=== PATIENT | female | born 1940 | race Caucasian/White ===

== ENCOUNTER → 2016-12-24 | Outpatient (REF) | payer MEDICARE, OTHER | LOC: M LAB REF 16:37 | PROVIDERS: ATTEND Physician Assistant | DX: N39.0 Urinary tract infection, site not specified (principal) ==

== ENCOUNTER 2017-06-16 00:37 | Inpatient (IN) | payer MEDICARE, BC, OTHER ==
[~2017-06-16] VITALS: Ht 167.6 cm; Wt 92.1 kg
[2017-06-16] MEDS ORDERED: pro air (00:56)
[2017-06-16] MEDS ORDERED: FEXO1POW PO (00:56)
[2017-06-16] MEDS ORDERED: ATEN100T PO (00:56)
[2017-06-16] MEDS ORDERED: ROSU5TAB PO (00:56)
[2017-06-16] MEDS ORDERED: TRIA37.53 PO (00:56)
[2017-06-16] MEDS ORDERED: OMEP40CA2 PO (00:56)
[2017-06-16] MEDS ORDERED: CLOP75TA2 PO (00:56)
[2017-06-16] MEDS: METOPROLOL 5 MG/5 ML VIAL IV PRN ×3 (01:12→01:25)
[2017-06-16] MEDS ORDERED: NS 500 ML IV ONE (01:15)
[2017-06-16 01:25] LABS: BASO % 0.4 % (0.0-1.0); EOS # 0.2 10^3/uL (0.0-0.50); EOS % 3.9 % (0.0-3.0); IMMATURE GRANULOCYTE % 0.4 % (0-0); LYMPH # 1.1 10^3/uL (1.5-4.5); LYMPH % 18.8 % (24.0-44.0); MEAN CORPUSCULAR HGB CONC 32.2 g/dl (32.0-36.5); MEAN CORPUSCULAR VOLUME 87.1 fl (80.0-96.0); MONO % 17.7 % (0.0-5.0); NEUTROPHILS # 3.3 10^3/uL (1.8-7.7); NEUTROPHILS % 58.8 % (36.0-66.0); PLATELET COUNT, AUTOMATED 191 10^3/uL (150-450); RED CELL DISTRIBUTION WIDTH 14.4 % (11.5-14.5); WHITE BLOOD COUNT 5.6 10^3/uL (4.0-10.0)
[2017-06-16 01:44] LABS: INR 0.99
[2017-06-16 01:47] LABS: ALBUMIN 3.4 GM/DL (3.2-5.2); ALT/SGPT 22 U/L (12-78); ANION GAP 7 MEQ/L (8-16); AST/SGOT 21 U/L (7-37); BILIRUBIN,DIRECT < 0.1 MG/DL (0.0-0.2); BLOOD UREA NITROGEN 22 MG/DL (7-18); CALCIUM LEVEL 8.7 MG/DL (8.8-10.2); CARBON DIOXIDE LEVEL 27 MEQ/L (21-32); CHLORIDE LEVEL 105 MEQ/L (98-107); CREATININE FOR GFR 0.89 MG/DL (0.55-1.02); GLOMERULAR FILTRATION RATE > 60.0 (>39); GLUCOSE, FASTING 117 MG/DL (83-110); MAGNESIUM LEVEL 1.9 MG/DL (1.8-2.4); POTASSIUM SERUM 3.6 MEQ/L (3.5-5.1); SODIUM LEVEL 139 MEQ/L (136-145)
[2017-06-16] MEDS ORDERED: PROAAER10 INH (01:49)
[2017-06-16] MEDS ORDERED: ALLE180T33 PO (01:49)
[2017-06-16] MEDS ORDERED: ANOR1AER INH (01:51)
[2017-06-16] MEDS ORDERED: PRESCAP PO (01:51)
[2017-06-16] MEDS ORDERED: ADVI200C PO (01:51)
[2017-06-16 01:52] LABS: ALBUMIN/GLOBULIN RATIO 0.94 (1.00-1.93); ALKALINE PHOSPHATASE 56 U/L (45-117); BILIRUBIN,TOTAL 0.4 MG/DL (0.2-1.0); FREE T4 1.01 NG/DL (0.76-1.46); PHOSPHORUS LEVEL 2.4 MG/DL (2.5-4.9)
[2017-06-16] MEDS ORDERED: DIGOXIN INJ 0.5 MG/2 ML AMP (J1160) IV STA (01:58)
[2017-06-16] MEDS ORDERED: NEUTRA-PHOS 1.25 GM PACKET PO ONE (02:00)
[2017-06-16] MEDS ORDERED: IPRATROPIUM 0.5MG/ALBUTEROL 2.5MG INH SOL UD 3ML (DUONEB)(J7620) NEB PRN (03:30)
[2017-06-16] MEDS: METOPROLOL TART 25 MG TABLET PO SCH ×3 (06:35→18:34)
[2017-06-16 06:44] LABS: MEAN CORPUSCULAR HEMOGLOBIN 27.9 pg (27.0-33.0); MEAN CORPUSCULAR HGB CONC 31.9 g/dl (32.0-36.5); MEAN CORPUSCULAR VOLUME 87.4 fl (80.0-96.0); PLATELET COUNT, AUTOMATED 173 10^3/uL (150-450); RED CELL DISTRIBUTION WIDTH 14.4 % (11.5-14.5); WHITE BLOOD COUNT 4.2 10^3/uL (4.0-10.0)
--- NOTE | 2017-06-16 06:54 | HPE ---
DATE OF ADMISSION: 06/16/2017 Lupe Mendenhall is a 76-year-old female patient of Dr. Shirley. Patient comes in with chief complaint of palpitations and chest pain. Patient notes that she was well until going to bed at 11:30 this evening when she said she tried to fall asleep and she felt some chest pain and palpitations. She tried to sleep anyway. She said that she thought maybe it was because she was only one pillow. She added a second pillow and it did not help her feel better. Thereafter, she says that she began to feel scared as well as uncomfortable so she called EMS who brought her in. Patient has somewhat limited insight into her medical conditions, based on the fact that when asking her directly if she has heart problems or other medical problems, she denies it though she clearly has hypertension, hyperlipidemia and coronary artery disease based on her medications. Patient also appears to have chronic obstructive pulmonary disease (COPD) based on her medications as well. Patient's home medications include: - Advil PM - albuterol sulfate - Anoro Ellipta - atenolol - Plavix - Penelope - hydrochlorothiazide with trimeter - omeprazole - PreserVision - rosuvastatin Patient denies allergies, however, I have a documented allergic allergy to atorvastatin and Itraconazole. FAMILY HISTORY: Mother of heart attack at 77. Father of unknown cause in his 80s. Patient denies any other problems. Patient is a nonsmoker, nondrinker, does not use drugs. REVIEW OF SYSTEMS: On complete 10 system review, patient without any other acute complaints other than was noted in the history of present illness. PHYSICAL EXAMINATION: Patient was resting comfortably when I came in to see her. Patient's most recent vitals show pulse of 112, pulse oximetry of 96 on 2 liters nasal cannula, blood pressure 120/63, temperature is 96.7, that was taken earlier in the day. Patient alert and oriented times three, normal affect, normal mood. Cranial nerves II-XII grossly intact. Patient with grossly decreased hearing on both sides. Patient with extraocular muscles intact, pupils equal, round, and reactive to light and accommodation, good eye sight in all four quadrants. Good inspiratory and expiratory effort. No wheezes, rhonchi or rales. Patient tachycardic on auscultation, difficult to ascertain S1 versus S2. No obvious murmurs noted. Abdomen is soft, nontender to palpation. Patient does walk with a cane, however has good strength in all four major extremities. No apparent lymphadenopathy. Skin is warm and dry. No significant edema. HOSPITAL COURSE: After patient arrived in the ED, patient was found initially to be hypotensive. Patient given three rounds of IV Lopressor and IV digoxin. Patient's heart rate did slow down, however, is still in atrial fibrillation with rapid ventricular rate. Patient without any previous history of atrial fibrillation with rapid ventricular rate as per the patient, however, again, patient denies any coronary artery disease, though patient is on Plavix and statin and aspirin. ASSESSMENT AND PLAN: Patient is a 76-year-old female who comes in with chief complaint of palpitations and chest pain. Patient found to be in atrial fibrillation with rapid ventricular rate. Cardiology consulted by ED. Dr. Gleason recommends changing patient's atenolol to metoprolol 50. This was done. Patient given IV digoxin. Recommendations include continue with oral digoxin daily. This was instituted. Patient to be on telemonitoring to be seen by cardiology in the morning. For patient's chronic obstructive pulmonary disease (COPD), hold home medications. DuoNebs as needed. Patient will be on low sodium diet. Patient not fully ambulatory at this time. Patient elderly. Patient also expected to have somewhat prolonged stay, therefore chemical deep venous thrombosis (DVT) prophylaxis is recommended. Patient to start on Lovenox. I first saw patient 06/16/2017. Given the patient's new onset atrial fibrillation with rapid ventricular rate without any clear source or cause, I expect this admission to be greater than two midnights.
[2017-06-16 06:56] LABS: INR 1.06
[2017-06-16 07:17] LABS: ALBUMIN 3.3 GM/DL (3.2-5.2); ALBUMIN/GLOBULIN RATIO 0.97 (1.00-1.93); ALKALINE PHOSPHATASE 51 U/L (45-117); ALT/SGPT 20 U/L (12-78); ANION GAP 7 MEQ/L (8-16); AST/SGOT 17 U/L (7-37); BILIRUBIN,TOTAL 0.4 MG/DL (0.2-1.0); BLOOD UREA NITROGEN 20 MG/DL (7-18); CALCIUM LEVEL 8.5 MG/DL (8.8-10.2); CARBON DIOXIDE LEVEL 29 MEQ/L (21-32); CHLORIDE LEVEL 106 MEQ/L (98-107); CREATININE FOR GFR 0.78 MG/DL (0.55-1.02); GLOMERULAR FILTRATION RATE > 60.0 (>39); GLUCOSE, FASTING 91 MG/DL (83-110); POTASSIUM SERUM 3.8 MEQ/L (3.5-5.1); SODIUM LEVEL 142 MEQ/L (136-145); TOTAL PROTEIN 6.7 GM/DL (6.4-8.2)
[2017-06-16] MEDS: FEXOFENADINE 60 MG TAB PO SCH (08:31)
[2017-06-16] MEDS: DYAZIDE 37.5/25 CAP (TRIAM/HCTZ) PO SCH (08:33)
[2017-06-16] MEDS: DIGOXIN 0.125 MG TAB PO SCH (08:34)
[2017-06-16] MEDS: OMEPRAZOLE 20 MG CAP PO SCH (08:34)
--- NOTE | 2017-06-16 08:45 | REP ---
Clinical: Chest pain . Comparison: 10/28/2007 Findings: The mediastinum and cardiac silhouette are stable and within normal limits for portable technique. The lung savage are clear without acute consolidation, effusion, or pneumothorax. Skeletal structures are intact. Impression: No acute cardiopulmonary process appreciated. Signed by Eddie Cade MD 06/16/2017 08:36 A
[2017-06-16] MEDS ORDERED: CLOPIDOGREL 75 MG TAB PO SCH (09:00)
[2017-06-16] MEDS ORDERED: ENOXAPARIN 40 MG/0.4 ML SYRINGE (J1650) SC SCH (09:00)
--- NOTE | 2017-06-16 09:34 | ECGEPIP ---
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
[2017-06-16 18:20] VITALS: BP 187/86
[2017-06-16 20:00] VITALS: BP 108/54
[2017-06-16] MEDS ORDERED: ROSUVASTATIN 10 MG TAB (CRESTOR) PO SCH (21:00)
--- NOTE | 2017-06-16 21:28 | ECGEPIP ---
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
[2017-06-16 23:59] VITALS: BP 117/56
[2017-06-17] MEDS: METOPROLOL TART 25 MG TABLET PO SCH ×2 (01:19→06:00)
[2017-06-17] MEDS ORDERED: ACETAMINOPHEN TAB 650MG DOSE (2X325MG) PO PRN (02:45)
[2017-06-17 02:54] VITALS: BP 130/58
[2017-06-17 06:00] VITALS: BP 130/58
[2017-06-17 06:10] LABS: MEAN CORPUSCULAR HEMOGLOBIN 27.9 pg (27.0-33.0); MEAN CORPUSCULAR HGB CONC 31.8 g/dl (32.0-36.5); MEAN CORPUSCULAR VOLUME 87.7 fl (80.0-96.0); PLATELET COUNT, AUTOMATED 184 10^3/uL (150-450); RED CELL DISTRIBUTION WIDTH 14.2 % (11.5-14.5); WHITE BLOOD COUNT 5.4 10^3/uL (4.0-10.0)
[2017-06-17 06:26] LABS: INR 0.96
[2017-06-17 06:28] LABS: ALBUMIN 3.3 GM/DL (3.2-5.2); ALBUMIN/GLOBULIN RATIO 1.03 (1.00-1.93); ALKALINE PHOSPHATASE 52 U/L (45-117); ALT/SGPT 17 U/L (12-78); ANION GAP 8 MEQ/L (8-16); AST/SGOT 15 U/L (7-37); BILIRUBIN,TOTAL 0.4 MG/DL (0.2-1.0); BLOOD UREA NITROGEN 21 MG/DL (7-18); CALCIUM LEVEL 8.9 MG/DL (8.8-10.2); CARBON DIOXIDE LEVEL 24 MEQ/L (21-32); CHLORIDE LEVEL 109 MEQ/L (98-107); CREATININE FOR GFR 0.87 MG/DL (0.55-1.02); GLOMERULAR FILTRATION RATE > 60.0 (>39); GLUCOSE, FASTING 94 MG/DL (83-110); SODIUM LEVEL 141 MEQ/L (136-145); TOTAL PROTEIN 6.5 GM/DL (6.4-8.2)
[2017-06-17 08:00] VITALS: BP 154/71
[2017-06-17] MEDS ORDERED: ATEN50TA2 PO (08:07)
[2017-06-17] MEDS ORDERED: ELIQ5TAB PO (08:07)
[2017-06-17] MEDS ORDERED: DIGO0.12 PO (08:07)
[2017-06-17] MEDS ORDERED: APIXABAN 5 MG TAB (ELIQUIS) PO ONE (08:15)
[2017-06-17] MEDS: FEXOFENADINE 60 MG TAB PO SCH (09:00)
[2017-06-17] MEDS: DYAZIDE 37.5/25 CAP (TRIAM/HCTZ) PO SCH (09:29)
[2017-06-17] MEDS: OMEPRAZOLE 20 MG CAP PO SCH (09:29)
[2017-06-17] MEDS: DIGOXIN 0.125 MG TAB PO SCH (09:30)
--- NOTE | 2017-06-18 17:44 | DSES ---
DATE OF ADMISSION: 06/16/2017 DATE OF DISCHARGE: 06/17/2017 SPECIALISTS INVOLVED IN CARE: None. COMPLICATIONS DURING STAY: None. PROCEDURES PERFORMING DURING STAY: None. DISCHARGE DIAGNOSES: 1. Atrial fibrillation with rapid ventricular response. 2. Hypertension. 3. History of transient ischemic attack, on Plavix. 4. Hyperlipidemia. 5. Suspected coronary artery disease. 6. Chronic obstructive pulmonary disease. SUMMARY OF HOSPITALIZATION: This is a 76-year-old who frequently suffers from weakness and dizzy spells. Has previously had Holter monitor. The night before the presentation she had presented with palpitations. She has had previous episodes of palpitations. Apparently not while on a Holter monitor. These were long lasting, longer than normal. She came to the emergency department for evaluation and was found to be in atrial fibrillation with rapid ventricular response (RVR). She was admitted to the hospitalist service and converted quickly to sinus rhythm with controlled rate. There was some confusion about the need for a cardiology consult. The patient has been monitored in the hospital overnight and has remained in sinus rhythm. Is feeling well and would like to go home. On the day of discharge she has no complaints of pain, chest pain, shortness of breath. I have discussed this case by phone with Dr. Gleason, who has assisted me in choosing medications. DISCHARGE INSTRUCTIONS: Followup with Dr. Shirley within [address] Gleason per his instructions. She is to call his office on June 21 for followup information. Diet and activity as tolerated. NEW MEDICATIONS AT TIME OF DISCHARGE: - apixaban 5 mg by mouth twice daily - atenolol 50 mg by mouth twice daily - digoxin 125 mcg by mouth daily - albuterol every 4 hours as needed for shortness of breath - Anoro Ellipta inhaled daily - Penelope 180 mg by mouth daily - hydrochlorothiazide/triamterene one capsule by mouth daily - omeprazole 40 mg by mouth daily - PreserVision one capsule by mouth twice daily - Crestor 5 mg by mouth daily Discontinue Advil PM. Discontinue atenolol 100 mg daily. Discontinue Plavix. Please note, patient may benefit from outpatient event recorded and/or loop recorder.
== END 2017-06-17 13:45 | disposition home or self-care (01) | DRG 310 ==
LOC: M ED 00:37 → M ED INP 03:01 → M PCU 18:15
PROVIDERS: ADMIT Internal Medicine; ATTEND Internal Medicine
DX: I48.91 Unspecified atrial fibrillation (principal); E78.5 Hyperlipidemia, unspecified; I25.10 Atherosclerotic heart disease of native coronary artery without angina pectoris; J44.9 Chronic obstructive pulmonary disease, unspecified; I10 Essential (primary) hypertension; Z79.02 Long term (current) use of antithrombotics/antiplatelets; Z79.899 Other long term (current) drug therapy; Z88.8 Allergy status to other drugs, medicaments and biological substances; Z86.73 Personal history of transient ischemic attack (TIA), and cerebral infarction without residual deficits

== ENCOUNTER → 2017-11-12 | Outpatient (REF) | payer MEDICARE, OTHER ==
[2017-11-12 17:18] LABS: C REACTIVE PROTEIN QUANTITATIV 1.55 MG/DL (0.00-0.30); FERRITIN 18 NG/ML (8-252); IRON (FE) 41 UG/DL (50-170); PERCENT SATURATION 11.8 % (13.2-45.0); TOTAL IRON BINDING CAPACITY 348 UG/DL (250-450)
== END ==
LOC: M LAB REF 16:24
DX: D64.9 Anemia, unspecified (principal); R19.7 Diarrhea, unspecified
CPT/HCPCS: 83550

== ENCOUNTER → 2017-11-30 | Outpatient (CLI) | payer MEDICARE, BC, OTHER | LOC: M SMT 13:08 | DX: R06.02 Shortness of breath (principal); K44.9 Diaphragmatic hernia without obstruction or gangrene; J84.9 Interstitial pulmonary disease, unspecified; I70.0 Atherosclerosis of aorta; M51.34 Other intervertebral disc degeneration, thoracic region | CPT/HCPCS: 71046 ==

== ENCOUNTER → 2018-01-29 | Outpatient (REF) | payer MEDICARE, BC, OTHER | LOC: M WUC 09:20 | DX: N39.0 Urinary tract infection, site not specified (principal) | CPT/HCPCS: 87186 ==

== ENCOUNTER → 2018-02-15 | Outpatient (REF) | payer MEDICARE, BC, OTHER | LOC: M LAB REF 11:47 | DX: R30.0 Dysuria (principal) | CPT/HCPCS: 87186 ==

== ENCOUNTER 2018-03-14 06:50 | Emergency (ER) | payer MEDICARE, BC, OTHER ==
[2018-03-14 07:39] LABS: BASO # 0.1 10^3/uL (0.0-0.2); BASO % 0.6 % (0.0-1.0); EOS # 0.3 10^3/uL (0.0-0.50); EOS % 4.1 % (0.0-3.0); HEMATOCRIT 38.3 % (36.0-47.0); HEMOGLOBIN 12.2 g/dl (12.0-15.5); IMMATURE GRANULOCYTE % 0.4 % (0-3.0); LYMPH % 12.3 % (24.0-44.0); MEAN CORPUSCULAR HEMOGLOBIN 28.1 pg (27.0-33.0); MEAN CORPUSCULAR HGB CONC 31.9 g/dl (32.0-36.5); MEAN CORPUSCULAR VOLUME 88.2 fl (80.0-96.0); MONO # 0.8 10^3/uL (0.0-0.8); MONO % 9.6 % (0.0-5.0); NEUTROPHILS # 5.9 10^3/uL (1.8-7.7); PLATELET COUNT, AUTOMATED 222 10^3/uL (150-450); RED BLOOD COUNT 4.34 10^6/uL (4.00-5.40); WHITE BLOOD COUNT 8.1 10^3/uL (4.0-10.0)
[2018-03-14 07:49] LABS: INR 1.05; PROTHROMBIN TIME 13.8 SECONDS (12.1-14.4)
[2018-03-14 07:50] LABS: PARTIAL THROMBOPLASTIN TIME 32.9 SECONDS (25.4-37.6)
[2018-03-14] MEDS: METOPROLOL 5 MG/5 ML VIAL IV ×4 (07:58→08:15)
[2018-03-14 07:59] LABS: ANION GAP 12 MEQ/L (8-16); BLOOD UREA NITROGEN 41 MG/DL (7-18); CALCIUM LEVEL 8.9 MG/DL (8.8-10.2); CARBON DIOXIDE LEVEL 21 MEQ/L (21-32); CHLORIDE LEVEL 111 MEQ/L (98-107); CPK CREATINE PHOSPHOKINASE 155 U/L (26-192); CREATININE FOR GFR 0.97 MG/DL (0.55-1.30); FREE T4 0.78 NG/DL (0.76-1.46); GLOMERULAR FILTRATION RATE 59.1 (>39); GLUCOSE, FASTING 125 MG/DL (70-100); MAGNESIUM LEVEL 2.2 MG/DL (1.8-2.4); PHOSPHORUS LEVEL 3.2 MG/DL (2.5-4.9); POTASSIUM SERUM 4.5 MEQ/L (3.5-5.1); SODIUM LEVEL 144 MEQ/L (136-145); TROPONIN I < 0.02 NG/ML (< 0.10)
[2018-03-14 08:14] LABS: CK-MB VALUE MASS 13.6 NG/ML (<3.6); MB/CK RELATIVE INDEX 8.77 (< OR =4); THYROID STIMULATING HORMONE 0.778 uIU/ML (0.358-3.740)
[2018-03-14 08:17] LABS: DIGOXIN LEVEL 0.9 NG/ML (0.5-2.0)
[2018-03-14] MEDS: AMIODARONE HCL 150 MG in APPROPRIATE DILUENT 1 EA IV (09:21)
[2018-03-14] MEDS: ATROPINE SULF 0.4 MG/ML 1ML VIAL (J0461) IV (10:33)
[2018-03-14] MEDS ORDERED: ATROPINE SULF 1MG/10ML SYRINGE (J0461) As Ordered (10:35)
[2018-03-14] MEDS: NS 500 ML IV ×2 (10:41→11:38)
[2018-03-14 11:41] LABS: CPK CREATINE PHOSPHOKINASE 123 U/L (26-192); TROPONIN I < 0.02 NG/ML (< 0.10)
[2018-03-14 11:42] LABS: CK-MB VALUE MASS 11.4 NG/ML (<3.6); MB/CK RELATIVE INDEX 9.26 (< OR =4)
[2018-03-14 14:10] LABS: CK-MB VALUE MASS 11.1 NG/ML (<3.6); CPK CREATINE PHOSPHOKINASE 124 U/L (26-192); MB/CK RELATIVE INDEX 8.95 (< OR =4); TROPONIN I < 0.02 NG/ML (< 0.10)
== END 2018-03-14 14:32 | disposition home or self-care (01) ==
LOC: M ED 06:50
DX: I48.91 Unspecified atrial fibrillation (principal); R91.8 Other nonspecific abnormal finding of lung field; I10 Essential (primary) hypertension; J44.9 Chronic obstructive pulmonary disease, unspecified; J45.909 Unspecified asthma, uncomplicated; E78.5 Hyperlipidemia, unspecified; K58.9 Irritable bowel syndrome, unspecified; K44.9 Diaphragmatic hernia without obstruction or gangrene; F17.200 Nicotine dependence, unspecified, uncomplicated; Z86.73 Personal history of transient ischemic attack (TIA), and cerebral infarction without residual deficits; Z79.01 Long term (current) use of anticoagulants; Z91.018 Allergy to other foods; Z88.8 Allergy status to other drugs, medicaments and biological substances; Z79.899 Other long term (current) drug therapy
CPT/HCPCS: J0461

== ENCOUNTER → 2018-07-21 | Outpatient (REF) | payer MEDICARE, OTHER ==
[~2018-07-21] MED LIST: ADVI1CAP2 PO; ALLE180T33 PO; ANOR1AER INH; ATEN100T PO; ATEN50TA2 PO; CLOP75TA2 PO; DIGO0.12 PO; ELIQ5TAB PO; FERR325T16 PO; FEXO1POW PO; LOSA50TA88 PO; OMEP40CA2 PO; PRESCAP PO; PROAAER10 INH; ROSU5TAB4 PO; SERT50TA PO; TRIA37.53 PO; TYLE650T35 PO; pro air
== END ==
LOC: M LAB REF 16:08
PROVIDERS: ATTEND Physician Assistant
DX: N39.0 Urinary tract infection, site not specified (principal)

== ENCOUNTER → 2018-09-01 | Outpatient (REF) | payer MEDICARE, OTHER | LOC: M LAB REF 16:50 | PROVIDERS: ATTEND Internal Medicine | DX: I48.0 Paroxysmal atrial fibrillation (principal) ==

== ENCOUNTER → 2018-09-30 | Outpatient (REF) | payer MEDICARE, OTHER ==
[2018-10-02 08:53] LABS: LDL DIRECT 106 mg/dL (0-99)
== END ==
LOC: M LAB REF 16:51
PROVIDERS: ATTEND Internal Medicine
DX: E78.5 Hyperlipidemia, unspecified (principal)

== ENCOUNTER → 2019-02-02 | Outpatient (REF) | payer MEDICARE, OTHER ==
[~2019-02-02] MED LIST changes: -ROSU5TAB4 PO; +ROSU5TAB5 PO; +SERT-141 PO; -SERT50TA PO
== END ==
LOC: M LAB REF 12:25
PROVIDERS: ATTEND Internal Medicine
DX: I48.0 Paroxysmal atrial fibrillation (principal)

== ENCOUNTER → 2019-05-26 | Outpatient (REF) | payer MEDICARE, OTHER ==
[~2019-05-26] MED LIST changes: -OMEP40CA2 PO; +OMEP40CA97 PO
[2019-05-26 13:20] LABS: DIGOXIN LEVEL 1.1 NG/ML (0.5-2.0); PERCENT SATURATION 20.9 % (13.2-45.0)
== END ==
LOC: M LAB REF 12:29
PROVIDERS: ATTEND Internal Medicine
DX: D50.9 Iron deficiency anemia, unspecified (principal); I48.0 Paroxysmal atrial fibrillation

== ENCOUNTER → 2019-11-02 | Outpatient (REF) | payer MEDICARE, OTHER ==
[~2019-11-02] MED LIST changes: +CARV12.5 PO; -DIGO0.12 PO; +DIGO0.123 PO
[2019-11-02 13:08] LABS: DIGOXIN LEVEL 1.2 NG/ML (0.5-2.0); PERCENT SATURATION 21.8 % (13.2-45.0)
[2019-11-03 08:06] LABS: LDL DIRECT 42 mg/dL (0-99)
== END ==
LOC: M LAB REF 12:18
PROVIDERS: ATTEND Internal Medicine
DX: D50.9 Iron deficiency anemia, unspecified (principal); I48.0 Paroxysmal atrial fibrillation; E78.5 Hyperlipidemia, unspecified

== ENCOUNTER 2019-11-03 11:56 | Day surgery (SDC) | payer MEDICARE, BC, OTHER ==
[~2019-11-03] VITALS: Ht 167.6 cm; Wt 85.4 kg
[~2019-11-03 11:56] MED LIST changes: +ceFAZolin SOD 2 GM in IV 1 EA IV ONE
[2019-11-03] MEDS ORDERED: BACITRACIN PWD 50,000 UNITS VIAL As Ordered ONE (14:40)
[2019-11-03] MEDS ORDERED: ISOVUE-300 61% 50ML VIAL (Q9967) As Ordered ONE (14:40)
[2019-11-03] MEDS ORDERED: propofoL 200 MG/20 ML VIAL As Ordered ONE (14:41)
[2019-11-03] MEDS ORDERED: dexameTHASONE 4 MG/ML 1ML VIAL (J1100 PER 1MG) As Ordered ONE (14:41)
[2019-11-03] MEDS ORDERED: ONDANSETRON 4MG/2ML VIAL (J2405) As Ordered ONE (14:41)
[2019-11-03] MEDS ORDERED: LIDOCAINE 2% INJ 100 MG/5 ML SDV (FOR ANES.) As Ordered ONE (14:41)
[2019-11-03] MEDS ORDERED: fentaNYL 100 MCG/2 ML INJECTION (J3010) As Ordered ONE (14:41)
[2019-11-03] MEDS ORDERED: MIDAZOLAM INJ 2 MG/2 ML VIAL (J2250) As Ordered ONE (14:58)
[2019-11-03] MEDS ORDERED: ACETAMINOPHEN 650MG ER TAB (TYLENOL ARTHRITIS) PO PRN (16:15)
[2019-11-03] MEDS ORDERED: PILL CUTTER 1 EACH XX PRN (16:30)
--- NOTE | 2019-11-03 17:08 | REP ---
HISTORY: Status post pacemaker insertion. COMPARISON: Preprocedural two view examination obtained 03/14/2018. The technique utilized in obtaining the radiograph has magnified the cardiac silhouette and accentuated the interstitial markings. There is mild cardiomegaly accentuated by technique. The dual chamber bipolar pacemaker device which has been placed has leads which appear contiguous and appropriate. No abnormal parenchymal opacities are identified. There is no change in the osseous structures. IMPRESSION: Status post pacemaker as described above. Electronically Signed by Mitchell Valenzuela DO 11/03/2019 05:24 P
[2019-11-03] MEDS ORDERED: fentaNYL 100 MCG/2 ML INJECTION (J3010) IV PRN (17:15)
[2019-11-03] MEDS ORDERED: LR 1,000 ML IV SCH (17:15)
[2019-11-03 17:45] VITALS: BP 150/67
[2019-11-03] MEDS ORDERED: SLF 3 ML SYR IV PRN (18:45)
--- NOTE | 2019-11-03 18:49 | RO ---
DATE OF PROCEDURE: 11/03/2019 PROCEDURE: Implantation of permanent dual-chamber pacemaker. IMPLANTING AUDIT TECH: Dr. Ravinder Gleason ANESTHESIOLOGIST: Dr. Orlando Cuba PREOPERATIVE DIAGNOSIS 1. Tachy-justen syndrome. 2. Paroxysmal atrial fibrillation with rapid ventricular response requiring negative chronotropic therapy. 3. First-degree AV block. POSTOPERATIVE DIAGNOSIS 1. Tachy-justen syndrome. 2. Paroxysmal atrial fibrillation with rapid ventricular response requiring negative chronotropic therapy. 3. First-degree AV block. TYPE OF ANESTHESIA: Monitored local anesthesia. CLINICAL SUMMARY This 79-year-old , resident of [place] is well-known to my cardiology practice with weight problem, obstructive sleep apnea, hypertensive and pulmonary heart disease complicated by abnormal EKG, paroxysmal atrial fibrillation, first-degree AV block and recently documented significant sinus bradycardia on her negative chronotropic therapies. Holter monitor documents sinus rhythm with rate as low as 35 bpm with 22 pauses of at least 2.2 seconds as well as ectopic atrial tachycardia up to 128 beats per minute. A permanent dual-chamber pacemaker was recommended to allow us to safely continue to administrate negative chronotropic therapies. Typical effort limiting symptom is dyspnea but she will walk short distances with her walker, has been free of other cardiovascular complaints. Overweight, slightly barrel-chested pleasant elderly lady laying comfortably. Heart rate 58 beats per minute with frequent irregularities. Blood pressure 126/55, respiratory rate 16, BMI 30.5. No pallor or cyanosis. Normal oral moisture. Edentulous, wearing dentures. Trachea midline. Thyroid not enlarged. Jugular veins at level of sternal angle. Increased anteroposterior chest diameter with few scattered inspiratory rales and slight prolongation of expiration, but no audible wheeze. Apical impulse at the mid clavicular line fifth costal space. Heart sounds were distant and slightly variable because of her arrhythmia. S4 gallop but no audible murmur. Normal carotid upstroke but variable volume related to her arrhythmia. A 1 mm pitting edema one-third up both lower legs with few dilated superficial venules. Pedal pulses were symmetrically reduced. Soft, obese abdomen. EKG October 05, 2019 showed a sinus rhythm at 65 bpm with left atrial conduction disturbance and marked first-degree AV block measuring 276 milliseconds. Incomplete right bundle branch block with prominent R wave in V2 suggestive of right ventricle hypertrophy versus prior infarction. ST/T-wave abnormalities related to digoxin effect. Recent blood work showed slight anemia, electrolyte balance and mild renal insufficiency. DESCRIPTION OF PROCEDURE Following informed consent with the patient in fasting state having received Ancef 2 grams IV premedication, the patient was taken to the operating theater. Numerous skin electrodes were applied to facilitate continuous electrocardiographic monitoring. Self-adhesive cardioverting/defibrillating patches were applied in a natural posterior configuration connected to a bedside cardioverter defibrillator. The left subclavian region was prepped and draped in the usual fashion and the skin was infiltrated with 1% Xylocaine. The left axillary vein was catheterized using a micropuncture technique. A 5-cm linear incision was made several centimeters below and parallel to the left clavicle. Dissection was carried down to the level of the pectoralis fascia and the pocket was fashioned below the level of the incision line. Two bipolar screw-in active fixation steroid eluding pacing leads were then positioned to the right ventricular apex and high right atrial appendage under fluoroscopic and electrocardiographic control. The right ventricular lead ([employer] model # [id number], serial # [id number]) measurements were: Stimulation threshold 0.5V / 0.4 ms / impedance 460 ohms. The R wave amplitude measured 12.0 mV. The atrial lead ([employer] model # XTN9687Y, serial # [id number]) measurements were: Stimulation threshold 0.75V / 0.4 ms / impedance 430 ohms. The P wave amplitude measured 3.0 mV. These leads were secured in position with sleeves sutured at their insertion site. They were then connected to a dual-chamber pulse generator ([employer] - Assurity MRI compatible mode # 2272, serial # [id number]) and appropriate DDD pacing was documented. We will activate the rate responsive feature of the device at a later date. The device was placed in the pocket and secured in position with a suture through the upper right-hand corner of the epoxy header. The subcutaneous tissues were approximated using a running chromic suture and the skin was closed using zabrina. Dry dressing was applied. The patient was returned to recovery room in good condition. No apparent complications. Estimated blood loss less than 5 mL. At this point she will be returning to telemetry and be monitored overnight. We will resume her customary digoxin and carvedilol and negative chronotropic therapies. Her postoperative portable upright chest x-ray showed good lead placement with no pneumothorax. Postoperative EKG showed consistent, AV sequentially paced rhythm at 60 bpm. She will receive an additional three doses of Ancef 1 gram every 8 hours. We anticipate her discharge from hospital tomorrow morning.
[2019-11-03 19:00] VITALS: O2SAT 96
[2019-11-03 20:00] VITALS: BP 147/65; O2SAT 95
[2019-11-03] MEDS: OCUVITE 1 TAB PO SCH (20:49)
[2019-11-03] MEDS: CARVedilol 12.5 MG TAB PO SCH (20:50)
[2019-11-03] MEDS: SLF 3 ML SYR IV SCH (20:51)
[2019-11-03 21:00] VITALS: O2SAT 96
[2019-11-03] MEDS ORDERED: ROSUVASTATIN 10 MG TAB (CRESTOR) PO SCH (21:00)
[2019-11-03 22:00] VITALS: O2SAT 92
[2019-11-03 23:00] VITALS: O2SAT 92
[2019-11-03] MEDS: ceFAZolin SOD 1 GM in D5W MINI-BAG PLUS 50 ML IV SCH (23:20)
[2019-11-04] VITALS (9 sets, daily range): BP systolic 130–142; BP diastolic 56–68; O2SAT 91–96
[2019-11-04] MEDS: SLF 3 ML SYR IV SCH (06:13)
[2019-11-04] MEDS: ceFAZolin SOD 1 GM in D5W MINI-BAG PLUS 50 ML IV SCH (06:13)
[2019-11-04] MEDS ORDERED: DYAZIDE 37.5/25 CAP (TRIAM/HCTZ) PO SCH (09:00)
[2019-11-04] MEDS ORDERED: LOSARTAN 50 MG TAB PO SCH (09:00)
[2019-11-04] MEDS ORDERED: SERTRALINE HCL 50 MG TAB PO SCH (09:00)
[2019-11-04] MEDS ORDERED: DIGOXIN 0.125 MG TAB PO SCH (09:00)
[2019-11-04] MEDS: OCUVITE 1 TAB PO SCH (09:08)
[2019-11-04] MEDS: CARVedilol 12.5 MG TAB PO SCH (09:09)
--- NOTE | 2019-11-04 09:13 | REP ---
REASON: Status post pacemaker insertion. COMPARISON: Portable examination obtained yesterday. There is a dual-chamber bipolar pacemaker device in place, the leads are contiguous and appropriate. The heart is not enlarged. The lung savage are clear. The osseous structures are within normal limits for the patient's age. There is a hiatal hernia. IMPRESSION: No evidence of acute cardiopulmonary disease. Findings as described above. Electronically Signed by Mitchell Valenzuela DO 11/04/2019 09:43 A
--- NOTE | 2019-11-04 10:22 | ECGEPIP ---
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 Paced QRS complexes with leftward axis and Left bundle branch block configuration in keeping with RV apical stimulation. Rhythm change and pacer new from 03/14/18. Electronically Signed on 11-04-2019 10:21:53 EDT by Ravinder Gleason
--- NOTE | 2019-11-04 10:27 | ECGEPIP ---
[facility] Test Date: 2019-11-04 Pat Name: FELIPA MACIAS Department: Room: [id number] Gender: Female Sider Mechanic: ERENDIRA : 1940 Requested By: Ravinder Gleason Order Number: [id number] Reading MD: Ravinder Gleason Measurements Intervals [place] Rate: 80 P: 58 CA: 180 QRS: -53 QRSD: 154 T: 111 QT: 400 QTc: 462 Interpretive Statements normal sinus rhythm Consistent atrial sensing and tracking with ventricular pacing Paced QRS complexes with leftward axis and Left bundle branch block configuration in keeping with RV apical stimulation. No change from 11/03/19. Electronically Signed on 11-04-2019 10:26:37 EDT by Ravinder Gleason
--- NOTE | 2019-11-04 12:19 | IPN ---
CARDIOLOGY PROGRESS NOTE DATE: 11/04/2019 SUBJECTIVE: The patient reports mild incisional discomfort following her surgery yesterday, but has been up in her room without lightheadedness. Remains unaware of her heart action. No anginal chest discomfort, shortness of breath or new lateralizing neurological symptoms. OBJECTIVE: Pleasant overweight elderly woman lay comfortably. Heart rate 76 bpm, blood pressure 142/68, respiratory rate 16, O2 saturation 93% on room air. Afebrile. Weight 188 pounds. Height 66 inches, BMI 30.4. No pallor or cyanosis. Normal oral moisture. Trachea midline. Neck veins not elevated. Normal chest configuration with chest expansion. Her pacemaker incision has minimal erythema and swelling, but no discharge. Only plus/minus distal pitting edema. 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 EKG: Today's tracing again shows sinus rhythm at 76 beats per minute with atrial sensing and tracking and consistent ventricular pacing. Paced QRS complexes with leftward axis and LBBB configuration in keeping with RV apical stimulation. No change from tracing yesterday following her implant. FINAL DIAGNOSES: 1. Paroxysmal atrial fibrillation: Has been free of symptomatic arrhythmia. Her medications (carvedilol and digoxin) have been resumed. We will resume her oral anticoagulation tomorrow morning. 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 2. Tachy-justen syndrome/dual-chamber pacemaker in situ: Her incision appears to be healing well. laboratory monitor and EKG today confirm appropriate device function. Her PA and left lateral chest x-ray taken earlier today was reviewed independently and shows mild cardiomegaly with slightly unfolded thoracic aorta, but normal pulmonary vasculature with clear lung savage, stable pacing lead position with pulse generator left subclavian region and no pneumothorax. 3. First-degree AV block: Complete device interrogation was performed today showing excellent intracardiac electrograms and pacing thresholds with ample battery voltage. She has been consistently paced overnight. We have activated her ventricular intrinsic search feature to try and minimize needless ventricular pacing if possible. 4. Abnormal EKG: Has been free of symptoms to suggest myocardial ischemia. There is been no serial repolarization change on her EKGs. Will continue on protective combination carvedilol, losartan, rosuvastatin and Eliquis starting tomorrow morning. 5. Hypertensive heart disease (benign without heart failure): Has been free of any symptom or sign of congestion. Current blood pressure would be considered adequately controlled on her combination therapy. 6. Cor pulmonale (chronic): Neck veins did not appear to be elevated. Stable lower leg swelling. DISCHARGE RECOMMENDATIONS AND MEDICATIONS: She will remain on the same modest salt and caloric restriction. We have requested that she perform only light activities of daily living with her left arm until her zabrina are removed in my office November 10, 2019 at 8:15 a.m. Other activity was to be as tolerated. Her medications will continue: - Carvedilol 12.5 mg b.i.d. - digoxin 0.125 mg daily - Eliquis 5 mg b.i.d. (starting tomorrow) - losartan 100 mg daily - omeprazole 40 mg daily p.r.n. - rosuvastatin 5 mg q.h.s. - sertraline 50 mg p.o. daily - triamterene/hydrochlorothiazide 37.5-25, 1 tablet daily - PreserVision AREDS 1 capsule b.i.d. We have requested that she contact our office for any abnormal erythema, swelling or discharge from her incision.
== END 2019-11-04 13:56 | disposition home or self-care (01) ==
LOC: M SDC 11:56 → M PCU 17:35 → M SDC 11-04 13:56
PROVIDERS: ATTEND Internal Medicine Cardiovascular Disease
DX: I49.5 Sick sinus syndrome (principal); I48.0 Paroxysmal atrial fibrillation; I44.0 Atrioventricular block, first degree; I27.81 Cor pulmonale (chronic); I11.9 Hypertensive heart disease without heart failure; I27.20 Pulmonary hypertension, unspecified; R94.31 Abnormal electrocardiogram [ECG] [EKG]; G47.33 Obstructive sleep apnea (adult) (pediatric); J44.9 Chronic obstructive pulmonary disease, unspecified; Z87.891 Personal history of nicotine dependence; Z79.01 Long term (current) use of anticoagulants; Z79.899 Other long term (current) drug therapy; E66.9 Obesity, unspecified; Z88.8 Allergy status to other drugs, medicaments and biological substances; Z91.018 Allergy to other foods
CPT/HCPCS: 33208; 71045; 71046; 76000; 93005; 96365; 96366; C1785; C1898; J0690; J1100; J2250; J2405; J3010

== ENCOUNTER → 2019-12-29 | Outpatient (REF) | payer MEDICARE, OTHER ==
[~2019-12-29] MED LIST changes: +ACET650T61 PO; -TYLE650T35 PO; -ceFAZolin SOD 2 GM in IV 1 EA IV ONE
== END ==
LOC: M LAB REF 12:35
PROVIDERS: ATTEND Dermatology
DX: C44.309 Unspecified malignant neoplasm of skin of other parts of face (principal)

== ENCOUNTER → 2020-01-10 | Outpatient (REF) | payer MEDICARE, OTHER ==
[~2020-01-10] MED LIST changes: -ACET650T61 PO; +TYLE650T35 PO
== END ==
LOC: M LAB REF 09:48
PROVIDERS: ATTEND Dermatology
DX: C44.329 Squamous cell carcinoma of skin of other parts of face (principal)

== ENCOUNTER → 2020-11-01 | Outpatient (REF) | payer MEDICARE, OTHER ==
[~2020-11-01] MED LIST changes: +ACET650T61 PO; +FERR324T21 PO; -FERR325T16 PO; -TYLE650T35 PO
== END ==
LOC: M LAB REF 15:56
PROVIDERS: ATTEND Physician Assistant
DX: R30.0 Dysuria (principal)

== ENCOUNTER → 2020-11-22 | Outpatient (REF) | payer MEDICARE, OTHER ==
[2020-11-22 12:59] LABS: DIGOXIN LEVEL 1.2 NG/ML (0.5-2.0); PERCENT SATURATION 17.5 % (13.2-45.0)
[2020-11-23 08:12] LABS: LDL DIRECT 67 mg/dL (0-99)
== END ==
LOC: M LAB REF 11:24
PROVIDERS: ATTEND Internal Medicine
DX: D50.9 Iron deficiency anemia, unspecified (principal); I48.0 Paroxysmal atrial fibrillation; E78.2 Mixed hyperlipidemia

== ENCOUNTER → 2021-04-28 | Outpatient (REF) | payer MEDICARE, OTHER ==
[~2021-04-28] MED LIST changes: +OMEP40CA4 PO; -OMEP40CA97 PO
[2021-04-28 13:21] LABS: DIGOXIN LEVEL 1.2 NG/ML (0.5-2.0); PERCENT SATURATION 22.8 % (13.2-45.0)
[2021-04-30 08:11] LABS: LDL DIRECT 46 mg/dL (0-99)
== END ==
LOC: M LAB REF 11:39
PROVIDERS: ATTEND Internal Medicine
DX: I11.9 Hypertensive heart disease without heart failure (principal); D50.9 Iron deficiency anemia, unspecified; E78.2 Mixed hyperlipidemia

== ENCOUNTER → 2021-11-04 | Outpatient (REF) | payer MEDICARE, OTHER ==
[~2021-11-04] MED LIST changes: +LOSA50TA28 PO; -LOSA50TA88 PO
[2021-11-05 08:12] LABS: LDL DIRECT 95 mg/dL (0-99)
== END ==
LOC: M LAB REF 12:06
PROVIDERS: ATTEND Internal Medicine
DX: I48.0 Paroxysmal atrial fibrillation (principal); E78.5 Hyperlipidemia, unspecified

== ENCOUNTER 2022-05-09 09:14 | Emergency (ER) | payer MEDICARE, OTHER ==
[~2022-05-09 09:14] MED LIST changes: -TRIA37.53 PO; +TRIA37.577 PO
[2022-05-09] MEDS ORDERED: VASC0.5C (09:29)
[2022-05-09] MEDS ORDERED: METF500T13 (09:29)
[2022-05-09] MEDS ORDERED: LEVOTAB10 (09:29)
[2022-05-09] MEDS ORDERED: FERR32TA (09:29)
[2022-05-09 11:45] LABS: BASO # 0.1 10^3/uL (0.0-0.2); BASO % 0.5 % (0.0-1.0); EOS # 0.4 10^3/uL (0.0-0.5); EOS % 3.8 % (0.0-3.0); HEMATOCRIT 34.4 % (36.0-47.0); HEMOGLOBIN 10.6 g/dl (12.0-15.5); LYMPH # 1.1 10^3/uL (1.5-5.0); MEAN CORPUSCULAR HEMOGLOBIN 27.6 pg (27.0-33.0); MEAN CORPUSCULAR HGB CONC 30.8 g/dl (32.0-36.5); MEAN CORPUSCULAR VOLUME 89.6 fl (80.0-96.0); MONO # 0.7 10^3/uL (0.0-0.8); NEUTROPHILS # 7.5 10^3/uL (1.5-8.5); NEUTROPHILS % 76.5 % (36.0-66.0); PLATELET COUNT, AUTOMATED 282 10^3/uL (150-450); RED BLOOD COUNT 3.84 10^6/uL (4.00-5.40); WHITE BLOOD COUNT 9.8 10^3/uL (4.0-10.0)
[2022-05-09 12:35] LABS: C REACTIVE PROTEIN QUANTITATIV 4.52 MG/DL (0.00-0.30); CALCIUM LEVEL 9.1 MG/DL (8.8-10.2); CREATININE FOR GFR 1.01 MG/DL (0.55-1.30); GLOMERULAR FILTRATION RATE 55.9 (>32); POTASSIUM SERUM 5.3 MEQ/L (3.5-5.1); URIC ACID 7.4 MG/DL (2.6-6.0)
[2022-05-09] MEDS ORDERED: AMOX875T2 PO (13:10)
[2022-05-09 13:31] VITALS: BP 167/77
== END 2022-05-09 13:34 | disposition home or self-care (01) ==
LOC: M ED 09:14
DX: L03.116 Cellulitis of left lower limb (principal); E87.5 Hyperkalemia; D64.9 Anemia, unspecified; I48.91 Unspecified atrial fibrillation; E11.9 Type 2 diabetes mellitus without complications; G47.33 Obstructive sleep apnea (adult) (pediatric); M77.32 Calcaneal spur, left foot; Z79.01 Long term (current) use of anticoagulants; Z79.899 Other long term (current) drug therapy; Z88.8 Allergy status to other drugs, medicaments and biological substances; Z91.018 Allergy to other foods

== ENCOUNTER → 2022-05-15 | Outpatient (REF) | payer MEDICARE, OTHER ==
[~2022-05-15] MED LIST changes: +AMOX875T2 PO; +FERR32TA; +LEVOTAB10; +METF500T13; +VASC0.5C
[2022-05-15 14:35] LABS: DIGOXIN LEVEL 1.7 NG/ML (0.5-2.0); PERCENT SATURATION 15.2 % (13.2-45.0)
== END ==
LOC: M LAB REF 12:09
PROVIDERS: ATTEND Internal Medicine
DX: D50.9 Iron deficiency anemia, unspecified (principal); I48.0 Paroxysmal atrial fibrillation

== ENCOUNTER 2022-06-05 09:29 | Inpatient (IN) | payer MEDICARE, BC, OTHER ==
[~2022-06-05] VITALS: Ht 167.6 cm; Wt 79.5 kg
[~2022-06-05 09:29] MED LIST changes: -LEVOTAB10; +LEVOTAB10 PO; -METF500T13; +METF500T13 PO; -VASC0.5C; +VASC0.5C PO
[2022-06-05 11:05] LABS: ALBUMIN 3.1 GM/DL (3.2-5.2); BILIRUBIN,DIRECT 0.1 MG/DL (0.0-0.2); BILIRUBIN,TOTAL 0.3 MG/DL (0.2-1.0); C REACTIVE PROTEIN QUANTITATIV 13.2 MG/DL (0.00-0.30); CALCIUM LEVEL 9.2 MG/DL (8.8-10.2); CREATININE FOR GFR 1.28 MG/DL (0.55-1.30); GLOMERULAR FILTRATION RATE 42.5 (>32); POTASSIUM SERUM 4.5 MEQ/L (3.5-5.1); TOTAL PROTEIN 6.8 GM/DL (6.4-8.2)
[2022-06-05 11:16] LABS: RSV AMPLIFICATION NEGATIVE (NEGATIVE)
[2022-06-05] MEDS ORDERED: ISOVUE-370 76% 100ML VIAL As Ordered ONE (11:17)
[2022-06-05 11:23] LABS: BASO # 0.1 10^3/uL (0.0-0.2); BASO % 0.4 % (0.0-1.0); EOS # 0.1 10^3/uL (0.0-0.5); EOS % 0.8 % (0.0-3.0); HEMATOCRIT 31.7 % (36.0-47.0); HEMOGLOBIN 9.8 g/dl (12.0-15.5); LYMPH # 0.8 10^3/uL (1.5-5.0); LYMPH % 6.2 % (24.0-44.0); MEAN CORPUSCULAR HEMOGLOBIN 27.8 pg (27.0-33.0); MEAN CORPUSCULAR HGB CONC 30.9 g/dl (32.0-36.5); MEAN CORPUSCULAR VOLUME 89.8 fl (80.0-96.0); MONO # 1.1 10^3/uL (0.0-0.8); MONO % 8.7 % (2.0-8.0); NEUTROPHILS % 83.4 % (36.0-66.0); PLATELET COUNT, AUTOMATED 222 10^3/uL (150-450); RED BLOOD COUNT 3.53 10^6/uL (4.00-5.40); WHITE BLOOD COUNT 13.1 10^3/uL (4.0-10.0)
[2022-06-05 11:46] LABS: INR 1.46; PROTHROMBIN TIME 18.1 SECONDS (12.5-14.5)
[2022-06-05 11:47] LABS: PARTIAL THROMBOPLASTIN TIME 42.2 SECONDS (24.8-34.2)
[2022-06-05 11:49] LABS: ERYTHROCYTE SEDIMENTATION RATE 85 mm/hr (0-30)
[2022-06-05 11:54] LABS: DIGOXIN LEVEL 0.7 NG/ML (0.5-2.0)
[2022-06-05] MEDS ORDERED: AMPICILLIN SOD/SULBACTAM SOD 3 GM in D5W MINI-BAG PLUS 100 ML IV ONE (12:05)
[2022-06-05] MEDS ORDERED: metroNIDAZOLE 500 MG in IV 1 EA IV ONE (12:05)
[2022-06-05] MEDS ORDERED: AMOX875T2 PO (12:40)
[2022-06-05] MEDS ORDERED: VITA100T14 PO (12:40)
[2022-06-05] MEDS ORDERED: HOME MED LIST COMPLETE! XX SCH (12:40)
[2022-06-05] MEDS ORDERED: ACETAMINOPHEN 650MG ER TAB (TYLENOL ARTHRITIS) PO PRN (13:45)
[2022-06-05] MEDS: NS 1,000 ML IV SCH (13:50)
[2022-06-05 15:15] VITALS: BP 154/67
[2022-06-05] MEDS ORDERED: VANCOMYCIN HCL 1,000 MG, VIAL MATE ADAPTER 1 EACH in D5W 250 ML IV ONE (16:00)
[2022-06-05] MEDS: ACETAMINOPHEN TAB 650MG DOSE (2X325MG) PO PRN (16:28)
[2022-06-05] MEDS ORDERED: VANCOMYCIN HCL 750 MG, VIAL MATE ADAPTER 1 EACH in D5W 250 ML IV ONE (17:00)
[2022-06-05] MEDS ORDERED: GLUCOSE 4GM CHEW TABLET PO PRN (17:20)
[2022-06-05] MEDS ORDERED: GLUCAGON INJ 1MG VIAL SC PRN (17:20)
[2022-06-05] MEDS ORDERED: DEXTROSE 50% 50 ML SYRINGE IV PRN (17:20)
[2022-06-05] MEDS: INSULIN LISPRO (NovoLOG) PER UNIT SC SCH ×2 (17:30→20:34)
[2022-06-05] MEDS: AMPICILLIN SOD/SULBACTAM SOD 3 GM in D5W MINI-BAG PLUS 100 ML IV SCH (18:48)
[2022-06-05 18:56] VITALS: BP_SYST 103; BP_SYST 126; BP_SYST 136; BP_DIAS 45; BP_DIAS 48
[2022-06-05] MEDS: OCUVITE 1 TAB PO SCH (20:54)
[2022-06-05] MEDS: APIXABAN 5 MG TAB (ELIQUIS) PO SCH (20:55)
[2022-06-05] MEDS: SERTRALINE HCL 50 MG TAB PO SCH (20:55)
[2022-06-05] MEDS: CARVedilol 12.5 MG TAB PO SCH (20:55)
[2022-06-05] MEDS: KETOROLAC 30 MG/ML 1ML VIAL IV PRN (20:59)
[2022-06-05 21:39] VITALS: BP 159/57
[2022-06-06] MEDS: AMPICILLIN SOD/SULBACTAM SOD 3 GM in D5W MINI-BAG PLUS 100 ML IV SCH ×4 (00:54→17:15)
[2022-06-06] MEDS: ACETAMINOPHEN TAB 650MG DOSE (2X325MG) PO PRN ×2 (04:54→16:31)
[2022-06-06] MEDS: NS 1,000 ML IV SCH ×2 (04:55→09:12)
[2022-06-06 05:44] LABS: HEMATOCRIT 28.3 % (36.0-47.0); HEMOGLOBIN 8.6 g/dl (12.0-15.5); MEAN CORPUSCULAR HEMOGLOBIN 27.4 pg (27.0-33.0); MEAN CORPUSCULAR HGB CONC 30.4 g/dl (32.0-36.5); MEAN CORPUSCULAR VOLUME 90.1 fl (80.0-96.0); PLATELET COUNT, AUTOMATED 221 10^3/uL (150-450); RED BLOOD COUNT 3.14 10^6/uL (4.00-5.40); WHITE BLOOD COUNT 10.8 10^3/uL (4.0-10.0)
[2022-06-06 05:50] VITALS: BP_SYST 127; BP_SYST 134; BP_SYST 140; BP_DIAS 58; BP_DIAS 61; BP_DIAS 63
[2022-06-06 06:00] VITALS: BP 148/50
[2022-06-06 06:08] LABS: ERYTHROCYTE SEDIMENTATION RATE 109 mm/hr (0-30)
[2022-06-06 06:34] LABS: ALBUMIN 2.7 GM/DL (3.2-5.2); BILIRUBIN,TOTAL 0.3 MG/DL (0.2-1.0); C REACTIVE PROTEIN QUANTITATIV 9.82 MG/DL (0.00-0.30); CALCIUM LEVEL 8.5 MG/DL (8.8-10.2); CREATININE FOR GFR 1.09 MG/DL (0.55-1.30); GLOMERULAR FILTRATION RATE 51.2 (>32); POTASSIUM SERUM 4.3 MEQ/L (3.5-5.1); TOTAL PROTEIN 5.9 GM/DL (6.4-8.2)
[2022-06-06] MEDS: INSULIN LISPRO (NovoLOG) PER UNIT SC SCH ×4 (07:30→21:00)
[2022-06-06] MEDS ORDERED: VANCOMYCIN HCL 1,000 MG, VIAL MATE ADAPTER 1 EACH in NS 250 ML IV SCH (09:00)
[2022-06-06] MEDS ORDERED: DYAZIDE 37.5/25 CAP (TRIAM/HCTZ) PO SCH (09:00)
[2022-06-06] MEDS: APIXABAN 5 MG TAB (ELIQUIS) PO SCH ×2 (09:01→21:17)
[2022-06-06] MEDS: ROSUVASTATIN 10 MG TAB (CRESTOR) PO SCH (09:02)
[2022-06-06] MEDS: OCUVITE 1 TAB PO SCH ×2 (09:02→21:17)
[2022-06-06] MEDS: CARVedilol 12.5 MG TAB PO SCH ×2 (09:03→21:47)
[2022-06-06] MEDS: DIGOXIN 0.125 MG TAB PO SCH (09:03)
[2022-06-06 14:00] VITALS: BP 145/53
[2022-06-06] MEDS: CHLORHEXIDINE GLUCONATE 0.12 % 15ML UDC (PERIDEX ORAL RINSE) MT SCH (21:16)
[2022-06-06] MEDS: SERTRALINE HCL 50 MG TAB PO SCH (21:17)
[2022-06-06] MEDS: KETOROLAC 30 MG/ML 1ML VIAL IV PRN (21:27)
[2022-06-06 22:00] VITALS: BP 145/65
[2022-06-06 22:57] LABS: PERCENT SATURATION 7.8 % (13.2-45.0)
[2022-06-07] MEDS: AMPICILLIN SOD/SULBACTAM SOD 3 GM in D5W MINI-BAG PLUS 100 ML IV SCH ×4 (00:01→18:37)
[2022-06-07 06:00] VITALS: BP 152/55
[2022-06-07 06:02] LABS: BASO # 0.1 10^3/uL (0.0-0.2); BASO % 0.6 % (0.0-1.0); EOS # 0.4 10^3/uL (0.0-0.5); EOS % 4.8 % (0.0-3.0); HEMATOCRIT 28.7 % (36.0-47.0); HEMOGLOBIN 8.7 g/dl (12.0-15.5); LYMPH # 1.2 10^3/uL (1.5-5.0); LYMPH % 15.1 % (24.0-44.0); MEAN CORPUSCULAR HEMOGLOBIN 27.1 pg (27.0-33.0); MEAN CORPUSCULAR HGB CONC 30.3 g/dl (32.0-36.5); MEAN CORPUSCULAR VOLUME 89.4 fl (80.0-96.0); MONO # 0.7 10^3/uL (0.0-0.8); MONO % 8.9 % (2.0-8.0); NEUTROPHILS # 5.6 10^3/uL (1.5-8.5); NEUTROPHILS % 69.4 % (36.0-66.0); PLATELET COUNT, AUTOMATED 237 10^3/uL (150-450); RED BLOOD COUNT 3.21 10^6/uL (4.00-5.40); WHITE BLOOD COUNT 8.1 10^3/uL (4.0-10.0)
[2022-06-07 06:26] LABS: C REACTIVE PROTEIN QUANTITATIV 7.14 MG/DL (0.00-0.30); CALCIUM LEVEL 8.7 MG/DL (8.8-10.2); CREATININE FOR GFR 1.01 MG/DL (0.55-1.30); GLOMERULAR FILTRATION RATE 55.9 (>32); POTASSIUM SERUM 4.4 MEQ/L (3.5-5.1)
[2022-06-07] MEDS: INSULIN LISPRO (NovoLOG) PER UNIT SC SCH ×2 (07:30→12:00)
[2022-06-07] MEDS: APIXABAN 5 MG TAB (ELIQUIS) PO SCH ×2 (09:23→20:23)
[2022-06-07] MEDS: DYAZIDE 37.5/25 CAP (TRIAM/HCTZ) PO SCH (09:23)
[2022-06-07] MEDS: ROSUVASTATIN 10 MG TAB (CRESTOR) PO SCH (09:23)
[2022-06-07] MEDS: OCUVITE 1 TAB PO SCH ×2 (09:23→20:22)
[2022-06-07] MEDS: CARVedilol 12.5 MG TAB PO SCH ×2 (09:24→20:25)
[2022-06-07] MEDS: CHLORHEXIDINE GLUCONATE 0.12 % 15ML UDC (PERIDEX ORAL RINSE) MT SCH ×2 (09:25→20:24)
[2022-06-07] MEDS: DIGOXIN 0.125 MG TAB PO SCH (09:25)
[2022-06-07 14:00] VITALS: BP 157/63
[2022-06-07] MEDS: MIRALAX *UNIT DOSE* 17GM PACKET PO SCH (15:34)
[2022-06-07] MEDS: FERROUS SULFATE 325MG TAB PO SCH (15:34)
[2022-06-07] MEDS: predniSONE 20 MG TAB PO SCH (15:39)
[2022-06-07] MEDS: ACETAMINOPHEN TAB 650MG DOSE (2X325MG) PO PRN (20:23)
[2022-06-07] MEDS: SERTRALINE HCL 50 MG TAB PO SCH (20:25)
[2022-06-07 20:57] VITALS: BP 133/73
[2022-06-08] MEDS: AMPICILLIN SOD/SULBACTAM SOD 3 GM in D5W MINI-BAG PLUS 100 ML IV SCH ×3 (00:37→12:00)
[2022-06-08] MEDS: KETOROLAC 30 MG/ML 1ML VIAL IV PRN (00:37)
[2022-06-08 05:23] VITALS: BP 111/74
[2022-06-08 05:49] LABS: BASO % 0.2 % (0.0-1.0); EOS % 0.1 % (0.0-3.0); HEMATOCRIT 27.4 % (36.0-47.0); HEMOGLOBIN 8.5 g/dl (12.0-15.5); LYMPH # 0.9 10^3/uL (1.5-5.0); LYMPH % 11.4 % (24.0-44.0); MEAN CORPUSCULAR HEMOGLOBIN 27.2 pg (27.0-33.0); MEAN CORPUSCULAR VOLUME 87.5 fl (80.0-96.0); MONO # 0.6 10^3/uL (0.0-0.8); MONO % 6.8 % (2.0-8.0); NEUTROPHILS # 6.4 10^3/uL (1.5-8.5); NEUTROPHILS % 79.4 % (36.0-66.0); PLATELET COUNT, AUTOMATED 272 10^3/uL (150-450); RED BLOOD COUNT 3.13 10^6/uL (4.00-5.40); WHITE BLOOD COUNT 8.1 10^3/uL (4.0-10.0)
[2022-06-08 06:23] LABS: C REACTIVE PROTEIN QUANTITATIV 4.94 MG/DL (0.00-0.30); CALCIUM LEVEL 8.8 MG/DL (8.8-10.2); CREATININE FOR GFR 1.03 MG/DL (0.55-1.30); GLOMERULAR FILTRATION RATE 54.6 (>32); POTASSIUM SERUM 4.9 MEQ/L (3.5-5.1)
[2022-06-08] MEDS: MIRALAX *UNIT DOSE* 17GM PACKET PO SCH (08:04)
[2022-06-08] MEDS: OCUVITE 1 TAB PO SCH ×2 (08:04→19:50)
[2022-06-08] MEDS: CHLORHEXIDINE GLUCONATE 0.12 % 15ML UDC (PERIDEX ORAL RINSE) MT SCH ×2 (08:04→19:52)
[2022-06-08] MEDS: ROSUVASTATIN 10 MG TAB (CRESTOR) PO SCH (08:04)
[2022-06-08] MEDS: predniSONE 20 MG TAB PO SCH (08:05)
[2022-06-08] MEDS: APIXABAN 5 MG TAB (ELIQUIS) PO SCH ×2 (08:05→19:52)
[2022-06-08] MEDS: CARVedilol 12.5 MG TAB PO SCH ×2 (08:05→19:51)
[2022-06-08] MEDS: FERROUS SULFATE 325MG TAB PO SCH (08:05)
[2022-06-08] MEDS: DYAZIDE 37.5/25 CAP (TRIAM/HCTZ) PO SCH (08:05)
[2022-06-08] MEDS: DIGOXIN 0.125 MG TAB PO SCH (08:05)
[2022-06-08 10:10] LABS: FOLATE 8.4 NG/ML (>5.4)
[2022-06-08 13:58] VITALS: BP 140/86
[2022-06-08 14:00] VITALS: BP 142/74
[2022-06-08] MEDS: SERTRALINE HCL 50 MG TAB PO SCH (19:50)
[2022-06-08] MEDS: DOCUSATE SODIUM 100MG CAPSULE PO SCH (19:51)
[2022-06-08] MEDS: AUGMENTIN 875 MG TAB PO SCH (19:51)
[2022-06-08 20:00] VITALS: BP 152/76
[2022-06-08] MEDS ORDERED: RAMELTEON 8 MG TAB (ROZEREM) PO PRN (21:25)
[2022-06-09 06:00] VITALS: BP 148/86
[2022-06-09 06:13] LABS: BASO # 0.1 10^3/uL (0.0-0.2); BASO % 0.6 % (0.0-1.0); EOS # 0.2 10^3/uL (0.0-0.5); EOS % 2.6 % (0.0-3.0); HEMATOCRIT 27.7 % (36.0-47.0); HEMOGLOBIN 8.5 g/dl (12.0-15.5); LYMPH # 1.6 10^3/uL (1.5-5.0); LYMPH % 18.6 % (24.0-44.0); MEAN CORPUSCULAR HEMOGLOBIN 27.1 pg (27.0-33.0); MEAN CORPUSCULAR HGB CONC 30.7 g/dl (32.0-36.5); MEAN CORPUSCULAR VOLUME 88.2 fl (80.0-96.0); MONO # 0.7 10^3/uL (0.0-0.8); MONO % 7.7 % (2.0-8.0); NEUTROPHILS # 5.9 10^3/uL (1.5-8.5); NEUTROPHILS % 67.4 % (36.0-66.0); PLATELET COUNT, AUTOMATED 306 10^3/uL (150-450); RED BLOOD COUNT 3.14 10^6/uL (4.00-5.40); WHITE BLOOD COUNT 8.8 10^3/uL (4.0-10.0)
[2022-06-09 06:36] LABS: C REACTIVE PROTEIN QUANTITATIV 2.61 MG/DL (0.00-0.30); CALCIUM LEVEL 9.2 MG/DL (8.8-10.2); CREATININE FOR GFR 0.96 MG/DL (0.55-1.30); GLOMERULAR FILTRATION RATE 59.2 (>32); POTASSIUM SERUM 4.8 MEQ/L (3.5-5.1)
[2022-06-09] MEDS ORDERED: BISACODYL 10 MG SUPP PR ONE (07:20)
[2022-06-09] MEDS: MIRALAX *UNIT DOSE* 17GM PACKET PO SCH (08:27)
[2022-06-09] MEDS: CHLORHEXIDINE GLUCONATE 0.12 % 15ML UDC (PERIDEX ORAL RINSE) MT SCH (08:27)
[2022-06-09] MEDS: FERROUS SULFATE 325MG TAB PO SCH (08:28)
[2022-06-09] MEDS: APIXABAN 5 MG TAB (ELIQUIS) PO SCH (08:28)
[2022-06-09] MEDS: DOCUSATE SODIUM 100MG CAPSULE PO SCH (08:28)
[2022-06-09] MEDS: AUGMENTIN 875 MG TAB PO SCH (08:28)
[2022-06-09] MEDS: predniSONE 20 MG TAB PO SCH (08:28)
[2022-06-09] MEDS: OCUVITE 1 TAB PO SCH (08:28)
[2022-06-09] MEDS: ROSUVASTATIN 10 MG TAB (CRESTOR) PO SCH (08:28)
[2022-06-09] MEDS: DYAZIDE 37.5/25 CAP (TRIAM/HCTZ) PO SCH (08:28)
[2022-06-09 08:29] VITALS: BP 132/57
[2022-06-09] MEDS: CARVedilol 12.5 MG TAB PO SCH (08:29)
[2022-06-09] MEDS: DIGOXIN 0.125 MG TAB PO SCH (08:29)
[2022-06-09] MEDS ORDERED: AMOX875T2 PO (12:23)
[2022-06-09] MEDS ORDERED: FERR1TAB8 PO (12:23)
[2022-06-09] MEDS ORDERED: COLA100C5 PO (12:23)
[2022-06-09] MEDS ORDERED: PERI12LIQ MT (12:23)
[2022-06-09] MEDS ORDERED: MIRA1POW3 PO (12:23)
[2022-06-09] MEDS ORDERED: PRED20TA PO (12:23)
== END 2022-06-09 14:44 | disposition home or self-care (01) | DRG 155 ==
LOC: M ED 09:29 → EDBD 09:29 → M ED INP 13:38 → ENRESERV 14:30 → M MSPAV 15:15
PROVIDERS: ADMIT Internal Medicine; ATTEND Internal Medicine
DX: K11.21 Acute sialoadenitis (principal); I47.20 Ventricular tachycardia, unspecified; R60.9 Edema, unspecified; I10 Essential (primary) hypertension; E11.9 Type 2 diabetes mellitus without complications; I48.0 Paroxysmal atrial fibrillation; D64.9 Anemia, unspecified; Z86.73 Personal history of transient ischemic attack (TIA), and cerebral infarction without residual deficits; E78.5 Hyperlipidemia, unspecified; Z79.899 Other long term (current) drug therapy; Z91.018 Allergy to other foods; Z88.8 Allergy status to other drugs, medicaments and biological substances

== ENCOUNTER → 2022-06-15 | Outpatient (REF) | payer MEDICARE, OTHER, BC ==
[~2022-06-15] MED LIST changes: +COLA100C5 PO; +FERR1TAB8 PO; +MIRA1POW3 PO; +PERI12LIQ MT; +PRED20TA PO; +VITA100T14 PO
[2022-06-17 13:08] LABS: ANTINUCLEAR ANTIBODIES DIRECT Negative (Negative)
== END ==
LOC: M LAB REF 16:37
PROVIDERS: ATTEND Internal Medicine
DX: E07.9 Disorder of thyroid, unspecified (principal); R55 Syncope and collapse; R73.03 Prediabetes

== ENCOUNTER → 2022-07-16 | Outpatient (REF) | payer MEDICARE, OTHER, BC | LOC: M LAB REF 16:38 | PROVIDERS: ATTEND Internal Medicine | DX: M10.072 Idiopathic gout, left ankle and foot (principal) ==

== ENCOUNTER 2022-11-02 09:40 | Day surgery (SDC) | payer MEDICARE, OTHER, BC ==
[~2022-11-02] VITALS: Ht 167.6 cm; Wt 81.2 kg
[~2022-11-02 09:40] MED LIST changes: +NS 1,000 ML IV ONE; +PRES10CA2 PO
[2022-11-02] MEDS ORDERED: fentaNYL 100 MCG/2 ML INJECTION As Ordered ONE (10:48)
[2022-11-02] MEDS ORDERED: propofoL 500 MG/50 ML VIAL As Ordered ONE (10:49)
[2022-11-02] MEDS ORDERED: LIDOCAINE 2% 100MG/5ML SDV (FOR ANES.) As Ordered ONE (10:52)
[2022-11-02 12:31] VITALS: BP 151/67
== END 2022-11-02 12:32 | disposition home or self-care (01) ==
LOC: M OPP 09:40
PROVIDERS: ATTEND Internal Medicine Gastroenterology
DX: K64.0 First degree hemorrhoids (principal); K57.30 Diverticulosis of large intestine without perforation or abscess without bleeding; D50.9 Iron deficiency anemia, unspecified; K44.9 Diaphragmatic hernia without obstruction or gangrene; E11.9 Type 2 diabetes mellitus without complications; I48.91 Unspecified atrial fibrillation; Z79.01 Long term (current) use of anticoagulants; Z79.84 Long term (current) use of oral hypoglycemic drugs; Z88.0 Allergy status to penicillin; Z88.5 Allergy status to narcotic agent; Z88.8 Allergy status to other drugs, medicaments and biological substances; Z86.73 Personal history of transient ischemic attack (TIA), and cerebral infarction without residual deficits
CPT/HCPCS: 43235; 45378; J3010

== ENCOUNTER 2022-12-07 03:56 | Inpatient (IN) | payer MEDICARE, BC, OTHER ==
[~2022-12-07] VITALS: Ht 167.6 cm; Wt 82.4 kg
[~2022-12-07 03:56] MED LIST changes: -NS 1,000 ML IV ONE
[2022-12-07 04:52] LABS: BASO # 0.1 10^3/uL (0.0-0.2); BASO % 0.7 % (0.0-1.0); EOS # 0.4 10^3/uL (0.0-0.5); EOS % 6.2 % (0.0-3.0); HEMATOCRIT 35.7 % (36.0-47.0); HEMOGLOBIN 11.1 g/dl (12.0-15.5); LYMPH # 1.6 10^3/uL (1.5-5.0); LYMPH % 22.9 % (24.0-44.0); MEAN CORPUSCULAR HEMOGLOBIN 27.7 pg (27.0-33.0); MEAN CORPUSCULAR HGB CONC 31.1 g/dl (32.0-36.5); MONO # 0.7 10^3/uL (0.0-0.8); MONO % 10.8 % (2.0-8.0); NEUTROPHILS % 58.5 % (36.0-66.0); PLATELET COUNT, AUTOMATED 193 10^3/uL (150-450); RED BLOOD COUNT 4.01 10^6/uL (4.00-5.40); WHITE BLOOD COUNT 6.8 10^3/uL (4.0-10.0)
[2022-12-07 04:58] LABS: CK-MB VALUE MASS 5.3 NG/ML (<3.6)
[2022-12-07 05:00] LABS: ALBUMIN 3.5 G/DL (3.2-5.2); ALKALINE PHOSPHATASE 69 U/L (46-116); ALT/SGPT 18 U/L (7.0-40); AST/SGOT 18 U/L (<34); BILIRUBIN,TOTAL 0.4 MG/DL (0.3-1.2); BLOOD UREA NITROGEN 32 MG/DL (9-23); CALCIUM LEVEL 8.6 MG/DL (8.3-10.6); CARBON DIOXIDE LEVEL 24 MMOL/L (20-31); CHLORIDE LEVEL 110 MMOL/L (98-107); CREATININE FOR GFR 0.81 MG/DL (0.55-1.30); GLOMERULAR FILTRATION RATE > 60.0 (>32); GLUCOSE, FASTING 121 MG/DL (74-106); MAGNESIUM LEVEL 1.9 MG/DL (1.8-2.4); POTASSIUM SERUM 4.1 MMOL/L (3.5-5.1); SODIUM LEVEL 141 MMOL/L (136-145); TOTAL PROTEIN 6.4 G/DL (5.7-8.2)
[2022-12-07 05:02] LABS: THYROID STIMULATING HORMONE 1.315 uIU/ML (0.55-4.78)
[2022-12-07 05:16] LABS: CPK CREATINE PHOSPHOKINASE 81 U/L (34-145); MB/CK RELATIVE INDEX 6.54 (< OR =4)
[2022-12-07] MEDS ORDERED: BOOSTRIX VACCINE (TETANUS/DIPHTH/ACEL. PERTUSSIS) 0.5ML SYR IM.IMMUN ONE (06:00)
[2022-12-07] MEDS ORDERED: DIGOXIN 0.125 MG TAB PO ONE (07:40)
[2022-12-07] MEDS ORDERED: CARVedilol 12.5 MG TAB PO ONE (07:40)
[2022-12-07] MEDS ORDERED: APIXABAN 5 MG TAB (ELIQUIS) PO ONE (07:40)
[2022-12-07] MEDS ORDERED: NS 1,000 ML IV SCH (09:50)
[2022-12-07] MEDS ORDERED: FERR325T3 PO (10:23)
[2022-12-07] MEDS ORDERED: ACET-907 PO (10:23)
[2022-12-07] MEDS ORDERED: HOME MED LIST COMPLETE! XX SCH (10:25)
[2022-12-07] MEDS: ACETAMINOPHEN TAB 650MG DOSE (2X325MG) PO PRN ×3 (11:03→23:21)
[2022-12-07 12:26] LABS: HEMOGLOBIN 10.3 g/dl (12.0-15.5)
[2022-12-07] MEDS ORDERED: PILL CUTTER 1 EACH XX PRN (14:50)
[2022-12-07 16:44] VITALS: BP 124/70
[2022-12-07] MEDS ORDERED: GLUCOSE 4GM CHEW TABLET PO PRN (17:25)
[2022-12-07] MEDS ORDERED: GLUCAGON INJ 1MG VIAL SC PRN (17:25)
[2022-12-07] MEDS ORDERED: DEXTROSE 50% 50ML SYRINGE IV PRN (17:25)
[2022-12-07] MEDS: OMEPRAZOLE 20MG CAP PO SCH (17:27)
[2022-12-07] MEDS: FERROUS SULFATE 325MG TAB PO SCH (17:27)
[2022-12-07] MEDS: ROSUVASTATIN 10 MG TAB (CRESTOR) PO SCH (17:27)
[2022-12-07] MEDS: INSULIN LISPRO (NovoLOG) PER UNIT SC SCH ×2 (17:30→20:47)
[2022-12-07] MEDS: DYAZIDE 37.5/25 CAP (TRIAM/HCTZ) PO SCH (18:04)
[2022-12-07] MEDS: SERTRALINE HCL 50 MG TAB PO SCH (20:46)
[2022-12-07] MEDS: CARVedilol 12.5 MG TAB PO SCH (20:47)
[2022-12-07 20:54] VITALS: BP 157/70
[2022-12-07] MEDS: RAMELTEON 8 MG TAB (ROZEREM) PO PRN (21:06)
[2022-12-08] VITALS (8 sets, daily range): BP systolic 146–192; BP diastolic 58–78
[2022-12-08 06:11] LABS: HEMATOCRIT 33.3 % (36.0-47.0); HEMOGLOBIN 10.3 g/dl (12.0-15.5); MEAN CORPUSCULAR HEMOGLOBIN 27.6 pg (27.0-33.0); MEAN CORPUSCULAR HGB CONC 30.9 g/dl (32.0-36.5); MEAN CORPUSCULAR VOLUME 89.3 fl (80.0-96.0); PLATELET COUNT, AUTOMATED 181 10^3/uL (150-450); RED BLOOD COUNT 3.73 10^6/uL (4.00-5.40); WHITE BLOOD COUNT 8.3 10^3/uL (4.0-10.0)
[2022-12-08 06:36] LABS: BLOOD UREA NITROGEN 24 MG/DL (9-23); CALCIUM LEVEL 8.6 MG/DL (8.3-10.6); CARBON DIOXIDE LEVEL 25 MMOL/L (20-31); CHLORIDE LEVEL 109 MMOL/L (98-107); CREATININE FOR GFR 0.66 MG/DL (0.55-1.30); GLOMERULAR FILTRATION RATE > 60.0 (>32); GLUCOSE, FASTING 143 MG/DL (74-106); POTASSIUM SERUM 4.6 MMOL/L (3.5-5.1); SODIUM LEVEL 142 MMOL/L (136-145)
[2022-12-08 08:12] LABS: INR 1.09; PROTHROMBIN TIME 14.3 SECONDS (12.5-14.5)
[2022-12-08 08:13] LABS: PARTIAL THROMBOPLASTIN TIME 32.2 SECONDS (24.8-34.2)
[2022-12-08] MEDS: INSULIN LISPRO (NovoLOG) PER UNIT SC SCH ×4 (08:57→20:20)
[2022-12-08] MEDS: OMEPRAZOLE 20MG CAP PO SCH (08:57)
[2022-12-08] MEDS: DYAZIDE 37.5/25 CAP (TRIAM/HCTZ) PO SCH (08:58)
[2022-12-08] MEDS: ROSUVASTATIN 10 MG TAB (CRESTOR) PO SCH (08:58)
[2022-12-08] MEDS: ACETAMINOPHEN TAB 650MG DOSE (2X325MG) PO PRN ×3 (08:58→20:19)
[2022-12-08] MEDS: FERROUS SULFATE 325MG TAB PO SCH (08:59)
[2022-12-08] MEDS: CARVedilol 12.5 MG TAB PO SCH ×2 (08:59→20:20)
[2022-12-08] MEDS: DIGOXIN 0.125 MG TAB PO SCH (08:59)
[2022-12-08] MEDS ORDERED: PANTOPRAZOLE 40MG TAB (PROTONIX) PO SCH (09:00)
[2022-12-08] MEDS: RAMELTEON 8 MG TAB (ROZEREM) PO PRN (20:19)
[2022-12-08] MEDS: APIXABAN 5 MG TAB (ELIQUIS) PO SCH (20:19)
[2022-12-08] MEDS: SERTRALINE HCL 50 MG TAB PO SCH (20:19)
[2022-12-08] MEDS ORDERED: NORCO, ANEXSIA 5/325MG TABLET (HYDROcodone/ACETAMINOPHEN) PO PRN (22:25)
[2022-12-09] VITALS: BP 138/68
[2022-12-09 05:27] VITALS: BP 150/60
[2022-12-09 06:29] LABS: HEMATOCRIT 33.5 % (36.0-47.0); HEMOGLOBIN 10.5 g/dl (12.0-15.5); MEAN CORPUSCULAR HEMOGLOBIN 27.6 pg (27.0-33.0); MEAN CORPUSCULAR HGB CONC 31.3 g/dl (32.0-36.5); MEAN CORPUSCULAR VOLUME 87.9 fl (80.0-96.0); PLATELET COUNT, AUTOMATED 184 10^3/uL (150-450); RED BLOOD COUNT 3.81 10^6/uL (4.00-5.40); WHITE BLOOD COUNT 8.5 10^3/uL (4.0-10.0)
[2022-12-09 06:56] LABS: ALBUMIN 3.5 G/DL (3.2-5.2); ALKALINE PHOSPHATASE 53 U/L (46-116); ALT/SGPT 18 U/L (7.0-40); AST/SGOT 16 U/L (<34); BILIRUBIN,TOTAL 0.9 MG/DL (0.3-1.2); BLOOD UREA NITROGEN 20 MG/DL (9-23); CALCIUM LEVEL 8.8 MG/DL (8.3-10.6); CARBON DIOXIDE LEVEL 28 MMOL/L (20-31); CHLORIDE LEVEL 106 MMOL/L (98-107); CREATININE FOR GFR 0.67 MG/DL (0.55-1.30); GLOMERULAR FILTRATION RATE > 60.0 (>32); GLUCOSE, FASTING 130 MG/DL (74-106); POTASSIUM SERUM 4.3 MMOL/L (3.5-5.1); SODIUM LEVEL 140 MMOL/L (136-145); TOTAL PROTEIN 6.4 G/DL (5.7-8.2)
[2022-12-09] MEDS: INSULIN LISPRO (NovoLOG) PER UNIT SC SCH ×2 (07:30→13:36)
[2022-12-09] MEDS ORDERED: CARVedilol 12.5 MG TAB PO SCH (09:00)
[2022-12-09] MEDS: APIXABAN 5 MG TAB (ELIQUIS) PO SCH (09:43)
[2022-12-09] MEDS: OMEPRAZOLE 20MG CAP PO SCH (09:43)
[2022-12-09] MEDS: ROSUVASTATIN 10 MG TAB (CRESTOR) PO SCH (09:44)
[2022-12-09] MEDS: DIGOXIN 0.125 MG TAB PO SCH (09:44)
[2022-12-09] MEDS: FERROUS SULFATE 325MG TAB PO SCH (09:44)
[2022-12-09 09:45] VITALS: BP 153/71
[2022-12-09] MEDS: DYAZIDE 37.5/25 CAP (TRIAM/HCTZ) PO SCH (09:45)
[2022-12-09] MEDS ORDERED: RAME8TAB2 PO (13:09)
[2022-12-09] MEDS ORDERED: CARV12.5 PO (13:09)
== END 2022-12-09 16:00 | DRG 605 ==
LOC: EDBD 03:56 → M ED 03:56 → M ED INP 08:35 → M PCU 16:19 → M MSPAV 12-08 19:58
PROVIDERS: ADMIT Internal Medicine; ATTEND Internal Medicine
DX: S01.81XA Laceration without foreign body of other part of head, initial encounter (principal); I10 Essential (primary) hypertension; E11.9 Type 2 diabetes mellitus without complications; D50.9 Iron deficiency anemia, unspecified; K21.9 Gastro-esophageal reflux disease without esophagitis; E78.5 Hyperlipidemia, unspecified; I48.0 Paroxysmal atrial fibrillation; K44.9 Diaphragmatic hernia without obstruction or gangrene; R55 Syncope and collapse; F32.A Depression, unspecified; Z86.73 Personal history of transient ischemic attack (TIA), and cerebral infarction without residual deficits; Z87.891 Personal history of nicotine dependence; Z88.8 Allergy status to other drugs, medicaments and biological substances; Z79.899 Other long term (current) drug therapy; Z91.018 Allergy to other foods; W18.30XA Fall on same level, unspecified, initial encounter; Y92.012 Bathroom of single-family (private) house as the place of occurrence of the external cause

== ENCOUNTER 2022-12-09 12:22 | Inpatient (IN) | payer MEDICARE, BC, OTHER ==
[~2022-12-09] VITALS: Ht 165.1 cm; Wt 81.8 kg
[~2022-12-09 12:22] MED LIST changes: +ACET-907 PO; +FERR325T3 PO
[2022-12-09] MEDS ORDERED: RAME8TAB2 PO (13:09)
[2022-12-09] MEDS ORDERED: CARV12.5 PO (13:09)
[2022-12-09 16:08] VITALS: BP 177/75
[2022-12-09] MEDS ORDERED: GLUCOSE 4GM CHEW TABLET PO PRN (16:40)
[2022-12-09] MEDS ORDERED: GLUCAGON INJ 1MG VIAL SC PRN (16:40)
[2022-12-09] MEDS ORDERED: DEXTROSE 50% 50ML SYRINGE IV PRN (16:40)
[2022-12-09] MEDS ORDERED: PILL CUTTER 1 EACH XX PRN (17:35)
[2022-12-09] MEDS: INSULIN LISPRO (NovoLOG) PER UNIT SC SCH ×2 (17:45→20:38)
[2022-12-09] MEDS: **hydrALAZINE HCL** 25 MG TAB PO SCH ×2 (17:45→23:51)
[2022-12-09 20:00] VITALS: BP 141/74
[2022-12-09] MEDS: CARVedilol 12.5 MG TAB PO SCH (20:36)
[2022-12-09] MEDS: SENNA 8.6 MG TAB (SENOKOT) PO SCH (20:36)
[2022-12-09] MEDS: RAMELTEON 8 MG TAB (ROZEREM) PO SCH (20:37)
[2022-12-09] MEDS: ACETAMINOPHEN 500 MG TAB PO SCH (20:37)
[2022-12-09] MEDS: SERTRALINE HCL 50 MG TAB PO SCH (20:37)
[2022-12-09] MEDS: APIXABAN 5 MG TAB (ELIQUIS) PO SCH (20:37)
[2022-12-09] MEDS: DOCUSATE SODIUM 100MG CAPSULE PO SCH (20:37)
[2022-12-10 06:00] VITALS: BP 179/75
[2022-12-10] MEDS: **hydrALAZINE HCL** 25 MG TAB PO SCH ×2 (06:11→12:00)
[2022-12-10 07:03] LABS: BASO % 0.5 % (0.0-1.0); EOS # 0.2 10^3/uL (0.0-0.5); EOS % 2.8 % (0.0-3.0); HEMATOCRIT 32.4 % (36.0-47.0); LYMPH # 1.2 10^3/uL (1.5-5.0); LYMPH % 15.9 % (24.0-44.0); MEAN CORPUSCULAR HEMOGLOBIN 27.7 pg (27.0-33.0); MEAN CORPUSCULAR HGB CONC 30.9 g/dl (32.0-36.5); MEAN CORPUSCULAR VOLUME 89.8 fl (80.0-96.0); MONO % 13.2 % (2.0-8.0); NEUTROPHILS # 5.2 10^3/uL (1.5-8.5); NEUTROPHILS % 67.2 % (36.0-66.0); PLATELET COUNT, AUTOMATED 179 10^3/uL (150-450); RED BLOOD COUNT 3.61 10^6/uL (4.00-5.40); WHITE BLOOD COUNT 7.8 10^3/uL (4.0-10.0)
[2022-12-10 07:28] LABS: ALBUMIN 3.4 G/DL (3.2-5.2); ALKALINE PHOSPHATASE 52 U/L (46-116); ALT/SGPT 16 U/L (7.0-40); AST/SGOT 17 U/L (<34); BILIRUBIN,TOTAL 0.8 MG/DL (0.3-1.2); BLOOD UREA NITROGEN 26 MG/DL (9-23); CALCIUM LEVEL 9.5 MG/DL (8.3-10.6); CARBON DIOXIDE LEVEL 29 MMOL/L (20-31); CHLORIDE LEVEL 104 MMOL/L (98-107); CREATININE FOR GFR 0.83 MG/DL (0.55-1.30); GLOMERULAR FILTRATION RATE > 60.0 (>32); GLUCOSE, FASTING 117 MG/DL (74-106); POTASSIUM SERUM 4.4 MMOL/L (3.5-5.1); SODIUM LEVEL 139 MMOL/L (136-145); TOTAL PROTEIN 6.2 G/DL (5.7-8.2)
[2022-12-10] MEDS: APIXABAN 5 MG TAB (ELIQUIS) PO SCH ×2 (08:33→20:59)
[2022-12-10] MEDS: OMEPRAZOLE 20MG CAP PO SCH (08:33)
[2022-12-10] MEDS: ACETAMINOPHEN 500 MG TAB PO SCH ×3 (08:34→20:59)
[2022-12-10] MEDS: CARVedilol 12.5 MG TAB PO SCH ×2 (08:34→18:41)
[2022-12-10] MEDS: ROSUVASTATIN 10 MG TAB (CRESTOR) PO SCH (08:35)
[2022-12-10] MEDS: DIGOXIN 0.125 MG TAB PO SCH (08:35)
[2022-12-10] MEDS: FERROUS SULFATE 325MG TAB PO SCH (08:35)
[2022-12-10] MEDS: DOCUSATE SODIUM 100MG CAPSULE PO SCH ×2 (08:36→21:00)
[2022-12-10] MEDS: INSULIN LISPRO (NovoLOG) PER UNIT SC SCH ×4 (08:36→21:00)
[2022-12-10] MEDS ORDERED: HOME MED LIST COMPLETE! XX SCH (08:40)
[2022-12-10] MEDS ORDERED: DYAZIDE 37.5/25 CAP (TRIAM/HCTZ) PO SCH (09:00)
[2022-12-10 14:00] VITALS: BP 108/51
[2022-12-10] MEDS: **hydrALAZINE** 10 MG TAB PO SCH ×2 (17:31→23:59)
[2022-12-10 20:00] VITALS: BP 122/58
[2022-12-10] MEDS: SERTRALINE HCL 50 MG TAB PO SCH (20:58)
[2022-12-10] MEDS: RAMELTEON 8 MG TAB (ROZEREM) PO SCH (20:58)
[2022-12-10] MEDS: SENNA 8.6 MG TAB (SENOKOT) PO SCH (21:00)
[2022-12-11] VITALS (7 sets, daily range): BP systolic 111–178; BP diastolic 57–63
[2022-12-11] MEDS: oxyCODONE 5MG TAB PO PRN (03:15)
[2022-12-11] MEDS: **hydrALAZINE** 10 MG TAB PO SCH ×3 (05:41→17:39)
[2022-12-11 05:45] LABS: BASO % 0.4 % (0.0-1.0); EOS # 0.3 10^3/uL (0.0-0.5); EOS % 3.6 % (0.0-3.0); HEMATOCRIT 31.3 % (36.0-47.0); HEMOGLOBIN 9.8 g/dl (12.0-15.5); LYMPH # 1.1 10^3/uL (1.5-5.0); LYMPH % 11.5 % (24.0-44.0); MEAN CORPUSCULAR HEMOGLOBIN 27.8 pg (27.0-33.0); MEAN CORPUSCULAR HGB CONC 31.3 g/dl (32.0-36.5); MEAN CORPUSCULAR VOLUME 88.7 fl (80.0-96.0); MONO % 10.9 % (2.0-8.0); NEUTROPHILS # 6.9 10^3/uL (1.5-8.5); NEUTROPHILS % 73.2 % (36.0-66.0); PLATELET COUNT, AUTOMATED 193 10^3/uL (150-450); RED BLOOD COUNT 3.53 10^6/uL (4.00-5.40); WHITE BLOOD COUNT 9.4 10^3/uL (4.0-10.0)
[2022-12-11 06:22] LABS: CALCIUM LEVEL 8.7 MG/DL (8.3-10.6); CREATININE FOR GFR 1.04 MG/DL (0.55-1.30); DIGOXIN LEVEL 0.9 NG/ML (0.8-2.0); GLOMERULAR FILTRATION RATE 53.9 (>32)
[2022-12-11] MEDS: INSULIN LISPRO (NovoLOG) PER UNIT SC SCH ×4 (08:03→21:00)
[2022-12-11] MEDS: CARVedilol 12.5 MG TAB PO SCH ×2 (08:03→18:40)
[2022-12-11] MEDS ORDERED: hydroCHLOROthiazide 12.5 MG CAPSULE PO SCH (09:00)
[2022-12-11] MEDS: FERROUS SULFATE 325MG TAB PO SCH (09:53)
[2022-12-11] MEDS: ROSUVASTATIN 10 MG TAB (CRESTOR) PO SCH (09:53)
[2022-12-11] MEDS: OMEPRAZOLE 20MG CAP PO SCH (09:54)
[2022-12-11] MEDS: DIGOXIN 0.125 MG TAB PO SCH (09:54)
[2022-12-11] MEDS: ACETAMINOPHEN 500 MG TAB PO SCH ×3 (09:55→21:30)
[2022-12-11] MEDS: APIXABAN 5 MG TAB (ELIQUIS) PO SCH ×2 (09:55→21:30)
[2022-12-11] MEDS: DOCUSATE SODIUM 100MG CAPSULE PO SCH ×2 (10:01→21:00)
[2022-12-11] MEDS: LIDOCAINE 5% (LIDODERM) PATCH TD SCH (14:47)
[2022-12-11] MEDS: SENNA 8.6 MG TAB (SENOKOT) PO SCH (21:00)
[2022-12-11] MEDS: SERTRALINE HCL 25 MG TABLET PO SCH (21:30)
[2022-12-11] MEDS: RAMELTEON 8 MG TAB (ROZEREM) PO PRN (21:43)
[2022-12-12] VITALS (7 sets, daily range): BP systolic 114–135; BP diastolic 55–60
[2022-12-12] MEDS: LIDOCAINE 5% (LIDODERM) PATCH TD SCH (03:43)
[2022-12-12] MEDS: oxyCODONE 5MG TAB PO PRN (04:06)
[2022-12-12] MEDS: **hydrALAZINE** 10 MG TAB PO SCH ×5 (06:00→23:45)
[2022-12-12] MEDS: CARVedilol 12.5 MG TAB PO SCH ×2 (06:06→17:30)
[2022-12-12] MEDS: ACETAMINOPHEN 500 MG TAB PO SCH ×3 (09:39→20:49)
[2022-12-12] MEDS: OMEPRAZOLE 20MG CAP PO SCH (09:40)
[2022-12-12] MEDS: FERROUS SULFATE 325MG TAB PO SCH (09:40)
[2022-12-12] MEDS: DIGOXIN 0.125 MG TAB PO SCH (09:40)
[2022-12-12] MEDS: DOCUSATE SODIUM 100MG CAPSULE PO SCH ×2 (09:41→20:49)
[2022-12-12] MEDS: ROSUVASTATIN 10 MG TAB (CRESTOR) PO SCH (09:41)
[2022-12-12] MEDS: APIXABAN 5 MG TAB (ELIQUIS) PO SCH ×2 (09:41→20:49)
[2022-12-12] MEDS: INSULIN LISPRO (NovoLOG) PER UNIT SC SCH ×4 (12:15→20:49)
[2022-12-12] MEDS ORDERED: DYAZIDE 37.5/25 CAP (TRIAM/HCTZ) PO SCH (13:00)
[2022-12-12] MEDS: SPIRONOLACTONE 6.25 MG PER 1/4 TAB PO SCH (13:00)
[2022-12-12] MEDS: hydroCHLOROthiazide 12.5 MG CAPSULE PO SCH (13:00)
[2022-12-12] MEDS ORDERED: hydroCHLOROthiazide 12.5 MG CAPSULE PO SCH (14:00)
[2022-12-12] MEDS: SENNA 8.6 MG TAB (SENOKOT) PO SCH (20:49)
[2022-12-12] MEDS: SERTRALINE HCL 25 MG TABLET PO SCH (20:49)
[2022-12-12] MEDS: RAMELTEON 8 MG TAB (ROZEREM) PO PRN (20:49)
[2022-12-13] MEDS: **hydrALAZINE** 10 MG TAB PO SCH ×3 (05:58→18:00)
[2022-12-13 06:00] VITALS: BP 162/71
[2022-12-13] MEDS: CARVedilol 12.5 MG TAB PO SCH ×2 (06:44→17:29)
[2022-12-13] MEDS: LIDOCAINE 5% (LIDODERM) PATCH TD SCH (09:06)
[2022-12-13] MEDS: APIXABAN 5 MG TAB (ELIQUIS) PO SCH ×2 (09:07→21:42)
[2022-12-13] MEDS: OMEPRAZOLE 20MG CAP PO SCH (09:07)
[2022-12-13] MEDS: DOCUSATE SODIUM 100MG CAPSULE PO SCH ×2 (09:07→21:42)
[2022-12-13] MEDS: ACETAMINOPHEN 500 MG TAB PO SCH ×3 (09:07→21:42)
[2022-12-13] MEDS: FERROUS SULFATE 325MG TAB PO SCH (09:07)
[2022-12-13] MEDS: DIGOXIN 0.125 MG TAB PO SCH (09:08)
[2022-12-13] MEDS: ROSUVASTATIN 10 MG TAB (CRESTOR) PO SCH (09:08)
[2022-12-13] MEDS: INSULIN LISPRO (NovoLOG) PER UNIT SC SCH ×4 (09:09→21:00)
[2022-12-13 12:02] LABS: ALBUMIN 3.1 G/DL (3.2-5.2); CALCIUM LEVEL 8.3 MG/DL (8.3-10.6); CREATININE FOR GFR 1.05 MG/DL (0.55-1.30); GLOMERULAR FILTRATION RATE 53.3 (>32); PHOSPHORUS LEVEL 3.6 MG/DL (2.4-5.1); POTASSIUM SERUM 4.4 MMOL/L (3.5-5.1)
[2022-12-13 12:08] VITALS: BP 129/61
[2022-12-13] MEDS: SPIRONOLACTONE 6.25 MG PER 1/4 TAB PO SCH (12:18)
[2022-12-13] MEDS: hydroCHLOROthiazide 12.5 MG CAPSULE PO SCH (12:18)
[2022-12-13 14:00] VITALS: BP 125/56
[2022-12-13 17:00] VITALS: BP 132/60
[2022-12-13 20:00] VITALS: BP 117/55
[2022-12-13] MEDS: SERTRALINE HCL 25 MG TABLET PO SCH (21:42)
[2022-12-13] MEDS: SENNA 8.6 MG TAB (SENOKOT) PO SCH (21:42)
[2022-12-13] MEDS: RAMELTEON 8 MG TAB (ROZEREM) PO PRN (21:42)
[2022-12-14 05:39] VITALS: BP 145/67
[2022-12-14] MEDS: **hydrALAZINE** 10 MG TAB PO SCH ×4 (05:48→17:53)
[2022-12-14] MEDS: CARVedilol 12.5 MG TAB PO SCH ×2 (06:53→19:48)
[2022-12-14] MEDS: ROSUVASTATIN 10 MG TAB (CRESTOR) PO SCH (08:33)
[2022-12-14] MEDS: APIXABAN 5 MG TAB (ELIQUIS) PO SCH ×2 (08:33→21:07)
[2022-12-14] MEDS: OMEPRAZOLE 20MG CAP PO SCH (08:33)
[2022-12-14] MEDS: LIDOCAINE 5% (LIDODERM) PATCH TD SCH (08:34)
[2022-12-14] MEDS: ACETAMINOPHEN 500 MG TAB PO SCH ×3 (08:34→19:48)
[2022-12-14] MEDS: FERROUS SULFATE 325MG TAB PO SCH (08:34)
[2022-12-14] MEDS: DOCUSATE SODIUM 100MG CAPSULE PO SCH ×2 (08:35→19:49)
[2022-12-14] MEDS: DIGOXIN 0.125 MG TAB PO SCH (08:35)
[2022-12-14] MEDS: INSULIN LISPRO (NovoLOG) PER UNIT SC SCH ×2 (08:36→12:00)
[2022-12-14 10:35] LABS: BASO # 0.1 10^3/uL (0.0-0.2); BASO % 0.6 % (0.0-1.0); EOS # 0.3 10^3/uL (0.0-0.5); EOS % 3.7 % (0.0-3.0); HEMATOCRIT 31.7 % (36.0-47.0); HEMOGLOBIN 9.5 g/dl (12.0-15.5); LYMPH # 1.1 10^3/uL (1.5-5.0); LYMPH % 14.1 % (24.0-44.0); MEAN CORPUSCULAR HEMOGLOBIN 27.2 pg (27.0-33.0); MEAN CORPUSCULAR VOLUME 90.8 fl (80.0-96.0); MONO # 0.8 10^3/uL (0.0-0.8); MONO % 9.9 % (2.0-8.0); NEUTROPHILS # 5.5 10^3/uL (1.5-8.5); NEUTROPHILS % 71.2 % (36.0-66.0); PLATELET COUNT, AUTOMATED 241 10^3/uL (150-450); RED BLOOD COUNT 3.49 10^6/uL (4.00-5.40); WHITE BLOOD COUNT 7.7 10^3/uL (4.0-10.0)
[2022-12-14 11:08] LABS: BLOOD UREA NITROGEN 49 MG/DL (9-23); CALCIUM LEVEL 8.7 MG/DL (8.3-10.6); CARBON DIOXIDE LEVEL 25 MMOL/L (20-31); CHLORIDE LEVEL 108 MMOL/L (98-107); CREATININE FOR GFR 0.93 MG/DL (0.55-1.30); GLOMERULAR FILTRATION RATE > 60.0 (>32); GLUCOSE, FASTING 105 MG/DL (74-106); POTASSIUM SERUM 4.1 MMOL/L (3.5-5.1); SODIUM LEVEL 139 MMOL/L (136-145)
[2022-12-14 12:01] VITALS: BP 152/67
[2022-12-14] MEDS: hydroCHLOROthiazide 12.5 MG CAPSULE PO SCH (13:00)
[2022-12-14] MEDS: SPIRONOLACTONE 6.25 MG PER 1/4 TAB PO SCH (13:00)
[2022-12-14 13:14] VITALS: BP 129/60
[2022-12-14 14:00] VITALS: BP 127/59
[2022-12-14 19:40] VITALS: BP 158/60
[2022-12-14] MEDS: SERTRALINE HCL 25 MG TABLET PO SCH (19:49)
[2022-12-14] MEDS: SENNA 8.6 MG TAB (SENOKOT) PO SCH (19:49)
[2022-12-14] MEDS: RAMELTEON 8 MG TAB (ROZEREM) PO PRN (19:51)
[2022-12-15] MEDS: **hydrALAZINE** 10 MG TAB PO SCH ×3 (00:10→12:04)
[2022-12-15] MEDS: oxyCODONE 5MG TAB PO PRN (00:13)
[2022-12-15 05:36] VITALS: BP 132/80
[2022-12-15] MEDS: CARVedilol 12.5 MG TAB PO SCH (06:56)
[2022-12-15] MEDS: DIGOXIN 0.125 MG TAB PO SCH (08:36)
[2022-12-15] MEDS: FERROUS SULFATE 325MG TAB PO SCH (08:36)
[2022-12-15] MEDS: APIXABAN 5 MG TAB (ELIQUIS) PO SCH (08:36)
[2022-12-15] MEDS: OMEPRAZOLE 20MG CAP PO SCH (08:36)
[2022-12-15] MEDS: ROSUVASTATIN 10 MG TAB (CRESTOR) PO SCH (08:36)
[2022-12-15] MEDS: ACETAMINOPHEN 500 MG TAB PO SCH (08:37)
[2022-12-15] MEDS: LIDOCAINE 5% (LIDODERM) PATCH TD SCH (08:37)
[2022-12-15] MEDS: DOCUSATE SODIUM 100MG CAPSULE PO SCH (08:38)
[2022-12-15] MEDS ORDERED: TRIA37.5 PO (11:01)
[2022-12-15] MEDS ORDERED: DIGO0.123 PO (11:01)
[2022-12-15] MEDS ORDERED: SERT25TA21 PO (11:01)
[2022-12-15] MEDS ORDERED: OMEP40CA4 PO (11:01)
[2022-12-15] MEDS ORDERED: ELIQ5TAB PO (11:01)
[2022-12-15] MEDS ORDERED: ROSU5TAB5 PO (11:01)
[2022-12-15] MEDS ORDERED: CORE25TA PO (11:15)
[2022-12-15 12:04] VITALS: BP 179/74
[2022-12-15] MEDS: hydroCHLOROthiazide 12.5 MG CAPSULE PO SCH (13:23)
[2022-12-15] MEDS: SPIRONOLACTONE 6.25 MG PER 1/4 TAB PO SCH (13:23)
[2022-12-15 13:24] VITALS: BP 134/68
== END 2022-12-15 13:55 | disposition home or self-care (01) | DRG 950 ==
LOC: M PM&R 15:55 → UNDOADMIN 15:55
PROVIDERS: ADMIT Physical Medicine & Rehabilitation; ATTEND Physical Medicine & Rehabilitation
DX: S01.81XD Laceration without foreign body of other part of head, subsequent encounter (principal); S06.0XAD Concussion with loss of consciousness status unknown, subsequent encounter; I48.0 Paroxysmal atrial fibrillation; I95.1 Orthostatic hypotension; R42 Dizziness and giddiness; R26.89 Other abnormalities of gait and mobility; E11.9 Type 2 diabetes mellitus without complications; E78.5 Hyperlipidemia, unspecified; K44.9 Diaphragmatic hernia without obstruction or gangrene; D50.9 Iron deficiency anemia, unspecified; K21.9 Gastro-esophageal reflux disease without esophagitis; F32.A Depression, unspecified; Z74.09 Other reduced mobility; Z74.1 Need for assistance with personal care; I10 Essential (primary) hypertension; Z95.0 Presence of cardiac pacemaker; Z86.73 Personal history of transient ischemic attack (TIA), and cerebral infarction without residual deficits; Z79.899 Other long term (current) drug therapy; Z88.8 Allergy status to other drugs, medicaments and biological substances; Z91.018 Allergy to other foods; Z66 Do not resuscitate

== ENCOUNTER 2022-12-20 10:52 | Emergency (ER) | payer MEDICARE, BC, OTHER ==
[~2022-12-20] VITALS: Ht 167.6 cm; Wt 81.2 kg
[~2022-12-20 10:52] MED LIST changes: +CORE25TA PO; +RAME8TAB2 PO; +SERT25TA21 PO; +TRIA37.5 PO
[2022-12-20] MEDS ORDERED: BACITRACIN OINTMENT 30GM TUBE TOP PRN (12:55)
[2022-12-20 13:14] VITALS: BP 147/66
== END 2022-12-20 13:26 | disposition home or self-care (01) ==
LOC: M ED 10:52
DX: S01.02XD Laceration with foreign body of scalp, subsequent encounter (principal); E11.9 Type 2 diabetes mellitus without complications; I48.91 Unspecified atrial fibrillation; I10 Essential (primary) hypertension; Z86.73 Personal history of transient ischemic attack (TIA), and cerebral infarction without residual deficits; Z95.0 Presence of cardiac pacemaker; Z79.899 Other long term (current) drug therapy; Z91.018 Allergy to other foods; Z88.8 Allergy status to other drugs, medicaments and biological substances

== ENCOUNTER 2022-12-28 15:00 | Emergency (ER) | payer MEDICARE, BC, OTHER ==
[~2022-12-28] VITALS: Ht 167.6 cm; Wt 81.8 kg
[2022-12-28] MEDS ORDERED: CEPH500C PO (18:20)
[2022-12-28 18:42] VITALS: TEMP 98; O2SAT 97
[2022-12-28] MEDS ORDERED: CARVedilol 12.5 MG TAB PO ONE (18:45)
[2022-12-28 18:51] VITALS: BP 220/99
[2022-12-28 19:44] VITALS: BP 192/79
== END 2022-12-28 19:46 | disposition home or self-care (01) ==
LOC: M ED 15:00
DX: Z48.02 Encounter for removal of sutures (principal); T81.31XA Disruption of external operation (surgical) wound, not elsewhere classified, initial encounter; I48.91 Unspecified atrial fibrillation; Z86.73 Personal history of transient ischemic attack (TIA), and cerebral infarction without residual deficits; E78.5 Hyperlipidemia, unspecified; I10 Essential (primary) hypertension; K21.9 Gastro-esophageal reflux disease without esophagitis; K58.9 Irritable bowel syndrome, unspecified; E11.9 Type 2 diabetes mellitus without complications; Z79.899 Other long term (current) drug therapy; Z88.8 Allergy status to other drugs, medicaments and biological substances; Z91.018 Allergy to other foods

== ENCOUNTER → 2023-02-04 | Outpatient (REF) | payer MEDICARE, OTHER ==
[~2023-02-04] MED LIST changes: +CEPH500C PO
[2023-02-04 18:11] LABS: PERCENT SATURATION 17.7 % (13.2-45.0)
[2023-02-04 18:12] LABS: FERRITIN 23.8 NG/ML (7.3-270.7)
== END ==
LOC: M LAB REF 16:31
PROVIDERS: ATTEND Internal Medicine
DX: D50.9 Iron deficiency anemia, unspecified (principal)

== ENCOUNTER → 2023-02-26 | Outpatient (REF) | payer MEDICARE, OTHER | LOC: M LAB REF 12:38 | PROVIDERS: ATTEND Physician Assistant Medical | DX: N39.0 Urinary tract infection, site not specified (principal) ==

== ENCOUNTER 2023-03-04 10:12 | Observation (INO) | payer MEDICARE, BC, OTHER ==
[~2023-03-04] VITALS: Ht 167.6 cm; Wt 84.0 kg
[2023-03-04 11:39] LABS: BASO # 0.1 10^3/uL (0.0-0.2); BASO % 0.7 % (0.0-1.0); EOS # 0.3 10^3/uL (0.0-0.5); EOS % 4.7 % (0.0-3.0); HEMATOCRIT 39.6 % (36.0-47.0); LYMPH % 13.6 % (24.0-44.0); MEAN CORPUSCULAR HGB CONC 30.3 g/dl (32.0-36.5); MEAN CORPUSCULAR VOLUME 89.2 fl (80.0-96.0); MONO # 0.7 10^3/uL (0.0-0.8); NEUTROPHILS # 5.2 10^3/uL (1.5-8.5); NEUTROPHILS % 71.7 % (36.0-66.0); PLATELET COUNT, AUTOMATED 216 10^3/uL (150-450); RED BLOOD COUNT 4.44 10^6/uL (4.00-5.40); WHITE BLOOD COUNT 7.3 10^3/uL (4.0-10.0)
[2023-03-04 12:03] LABS: OSMOLALITY SERUM 305 MOSM/KG (280-301)
[2023-03-04 12:06] LABS: DIGOXIN LEVEL 1.3 NG/ML (0.8-2.0)
[2023-03-04 12:07] LABS: ALKALINE PHOSPHATASE 66 U/L (46-116); ALT/SGPT 20 U/L (7.0-40); AST/SGOT 14 U/L (<34); BILIRUBIN,DIRECT < 0.1 MG/DL (<0.4); BILIRUBIN,TOTAL 0.3 MG/DL (0.3-1.2); BLOOD UREA NITROGEN 25 MG/DL (9-23); CALCIUM LEVEL 9.3 MG/DL (8.3-10.6); CARBON DIOXIDE LEVEL 24 MMOL/L (20-31); CHLORIDE LEVEL 113 MMOL/L (98-107); CREATININE FOR GFR 0.64 MG/DL (0.55-1.30); GLOMERULAR FILTRATION RATE > 60.0 (>32); GLUCOSE, FASTING 111 MG/DL (74-106); POTASSIUM SERUM 4.7 MMOL/L (3.5-5.1); SODIUM LEVEL 144 MMOL/L (136-145); TOTAL PROTEIN 7.1 G/DL (5.7-8.2)
[2023-03-04 12:08] LABS: THYROID STIMULATING HORMONE 0.921 uIU/ML (0.55-4.78)
[2023-03-04] MEDS ORDERED: NS 500 ML IV ONE (12:10)
[2023-03-04] MEDS ORDERED: ACETAMINOPHEN TAB 650MG DOSE (2X325MG) PO PRN (12:45)
[2023-03-04] MEDS ORDERED: SPIR-10 PO (12:51)
[2023-03-04] MEDS ORDERED: VALS1TAB67 PO (12:53)
[2023-03-04] MEDS ORDERED: AMLO1TAB24 PO (12:57)
[2023-03-04] MEDS ORDERED: OCUVCAP PO (13:00)
[2023-03-04] MEDS ORDERED: CORE12.5 PO (13:01)
[2023-03-04] MEDS ORDERED: MED REC IN PROGRESS XX SCH (13:05)
[2023-03-04] MEDS ORDERED: HOME MED LIST COMPLETE! XX SCH ×2 (13:05→16:45)
[2023-03-04] MEDS ORDERED: PRES10CA2 PO (13:20)
[2023-03-04] MEDS ORDERED: DEXTROSE 50% 50ML SYRINGE IV PRN (13:55)
[2023-03-04] MEDS ORDERED: GLUCOSE 4GM CHEW TABLET PO PRN (13:55)
[2023-03-04] MEDS ORDERED: GLUCAGON INJ 1MG VIAL SC PRN (13:55)
[2023-03-04 14:44] LABS: INR 1.27; PROTHROMBIN TIME 15.5 SECONDS (12.5-14.5)
[2023-03-04 14:46] LABS: HEMOGLOBIN A1c 6.4 % (4.0-6.0)
[2023-03-04 14:55] VITALS: BP 158/62; TEMP 97.7; O2SAT 95
[2023-03-04] MEDS ORDERED: ELIQ5TAB PO (16:21)
[2023-03-04] MEDS ORDERED: SERT25TA21 PO (16:21)
[2023-03-04] MEDS ORDERED: OMEP40CA5 PO (16:21)
[2023-03-04] MEDS ORDERED: DIGO0.123 PO (16:21)
[2023-03-04] MEDS ORDERED: ROSU5TAB5 PO (16:21)
[2023-03-04] MEDS: INSULIN LISPRO (NovoLOG) PER UNIT SC SCH (17:30)
[2023-03-04 19:41] VITALS: BP 152/60; TEMP 97.3; O2SAT 95
[2023-03-04] MEDS: CARVedilol 12.5 MG TAB PO SCH (20:38)
[2023-03-04] MEDS: APIXABAN 5 MG TAB (ELIQUIS) PO SCH (20:38)
[2023-03-04] MEDS ORDERED: SERTRALINE HCL 25 MG TABLET PO SCH (21:00)
[2023-03-04] MEDS ORDERED: ENTER DRUG NAME HERE (PATIENT'S OWN MED) PO SCH (21:00)
[2023-03-04] MEDS ORDERED: VALSARTAN 80 MG TAB (DIOVAN) PO SCH (21:00)
[2023-03-04 21:59] VITALS: BP 150/50; TEMP 98.3; O2SAT 95
[2023-03-05 05:21] VITALS: BP 153/74; TEMP 97.4; O2SAT 96
[2023-03-05 05:41] LABS: HEMATOCRIT 39.9 % (36.0-47.0); HEMOGLOBIN 11.9 g/dl (12.0-15.5); MEAN CORPUSCULAR HEMOGLOBIN 26.7 pg (27.0-33.0); MEAN CORPUSCULAR HGB CONC 29.8 g/dl (32.0-36.5); MEAN CORPUSCULAR VOLUME 89.7 fl (80.0-96.0); PLATELET COUNT, AUTOMATED 204 10^3/uL (150-450); RED BLOOD COUNT 4.45 10^6/uL (4.00-5.40); WHITE BLOOD COUNT 6.9 10^3/uL (4.0-10.0)
[2023-03-05 06:17] LABS: ALBUMIN 3.7 G/DL (3.2-5.2); ALKALINE PHOSPHATASE 63 U/L (46-116); ALT/SGPT 19 U/L (7.0-40); AST/SGOT 13 U/L (<34); BILIRUBIN,TOTAL 0.3 MG/DL (0.3-1.2); BLOOD UREA NITROGEN 21 MG/DL (9-23); CALCIUM LEVEL 9.4 MG/DL (8.3-10.6); CARBON DIOXIDE LEVEL 25 MMOL/L (20-31); CHLORIDE LEVEL 112 MMOL/L (98-107); CREATININE FOR GFR 0.57 MG/DL (0.55-1.30); GLOMERULAR FILTRATION RATE > 60.0 (>32); GLUCOSE, FASTING 121 MG/DL (74-106); POTASSIUM SERUM 4.3 MMOL/L (3.5-5.1); SODIUM LEVEL 144 MMOL/L (136-145); TOTAL PROTEIN 6.6 G/DL (5.7-8.2)
[2023-03-05] MEDS: INSULIN LISPRO (NovoLOG) PER UNIT SC SCH (07:30)
[2023-03-05] MEDS ORDERED: DIGOXIN 0.125 MG TAB PO SCH (09:00)
[2023-03-05] MEDS ORDERED: FERROUS SULFATE 325MG TAB PO SCH (09:00)
[2023-03-05] MEDS ORDERED: ROSUVASTATIN 10 MG TAB (CRESTOR) PO SCH (09:00)
[2023-03-05] MEDS ORDERED: OMEPRAZOLE 20MG CAP PO SCH (09:00)
[2023-03-05] MEDS ORDERED: SPIRONOLACTONE 12.5MG PER 1/2 TABLET PO SCH (09:00)
[2023-03-05] MEDS ORDERED: amLODIPine 5 MG TAB PO SCH (09:00)
[2023-03-05] MEDS: APIXABAN 5 MG TAB (ELIQUIS) PO SCH (09:32)
[2023-03-05 09:36] VITALS: BP 180/76
[2023-03-05] MEDS: CARVedilol 12.5 MG TAB PO SCH (09:37)
[2023-03-05] MEDS ORDERED: CEPH500C PO (09:38)
[2023-03-05] MEDS ORDERED: PROB250C PO (09:39)
== END 2023-03-05 12:57 | disposition home or self-care (01) ==
LOC: M ED 10:12 → M ED INP 12:44 → M MS4PR 14:54
PROVIDERS: ADMIT Internal Medicine; ATTEND Internal Medicine
DX: R53.1 Weakness (principal); R26.81 Unsteadiness on feet; Z59.19 Other inadequate housing; N39.0 Urinary tract infection, site not specified; I48.0 Paroxysmal atrial fibrillation; Z79.01 Long term (current) use of anticoagulants; Z79.2 Long term (current) use of antibiotics; Z86.73 Personal history of transient ischemic attack (TIA), and cerebral infarction without residual deficits; D50.9 Iron deficiency anemia, unspecified; K44.9 Diaphragmatic hernia without obstruction or gangrene; Z79.899 Other long term (current) drug therapy; Z91.041 Radiographic dye allergy status; Z95.0 Presence of cardiac pacemaker; E11.9 Type 2 diabetes mellitus without complications; E78.5 Hyperlipidemia, unspecified; I10 Essential (primary) hypertension; K21.9 Gastro-esophageal reflux disease without esophagitis; F32.A Depression, unspecified; Z88.8 Allergy status to other drugs, medicaments and biological substances
CPT/HCPCS: 36415; 70450; 80048; 80053; 80076; 80162; 81001; 82140; 83036; 83930; 84443; 85025; 85027; 85610; 85730; 87088; 87186; 87635; 93005; 96374; 97161; 97530; 99284; G0378

== ENCOUNTER → 2023-03-13 | Outpatient (REF) | payer MEDICARE, OTHER, BC ==
[~2023-03-13] MED LIST changes: +AMLO1TAB24 PO; +CORE12.5 PO; +OCUVCAP PO; +OMEP40CA5 PO; +PROB250C PO; +SPIR-10 PO; +VALS1TAB67 PO
== END ==
LOC: M LAB REF 17:57
PROVIDERS: ATTEND Physician Assistant
DX: R30.0 Dysuria (principal)

== ENCOUNTER → 2023-03-15 | Outpatient (REF) | payer MEDICARE, OTHER, BC | LOC: M LAB REF 16:57 | PROVIDERS: ATTEND Internal Medicine | DX: N32.81 Overactive bladder (principal); N39.0 Urinary tract infection, site not specified ==

== ENCOUNTER → 2023-04-28 | Outpatient (REF) | payer MEDICARE, OTHER, BC | LOC: M LAB REF 12:24 | PROVIDERS: ATTEND Internal Medicine | DX: R35.0 Frequency of micturition (principal) ==

== ENCOUNTER → 2023-05-11 | Outpatient (REF) | payer MEDICARE, OTHER ==
[2023-05-11 17:54] LABS: APPEARANCE, URINE TURBID (CLEAR); BACTERIA, URINE AUTO 1+ (NEGATIVE); BILIRUBIN, URINE AUTO NEGATIVE (NEGATIVE); BLOOD, URINE BLOOD NEGATIVE (NEGATIVE); COLOR, URINE YELLOW (YELLOW); GLUCOSE, URINE (UA) AUTO NEGATIVE (NEGATIVE); KETONE, URINE AUTO NEGATIVE (NEGATIVE); LEUKOCYTE ESTERASE, URINE AUTO 2+ (NEGATIVE); NITRITE, URINE AUTO NEGATIVE (NEGATIVE); PROTEIN, URINE AUTO 3+ mg/dL (NEGATIVE); RBC, URINE AUTO 40 /HPF (0-3); SQUAMOUS EPITHELIAL CELL UR AU 3 /HPF (0-6); UROBILINOGEN, URINE AUTO 0.2 mg/dL (0.0-2.0); WBC, URINE AUTO TNTC /HPF (0-3)
== END ==
LOC: M LAB REF 16:04
PROVIDERS: ATTEND Internal Medicine
DX: R30.0 Dysuria (principal); N39.0 Urinary tract infection, site not specified

== ENCOUNTER → 2023-08-23 | Outpatient (REF) | payer MEDICARE, OTHER ==
[2023-08-23 18:18] LABS: APPEARANCE, URINE TURBID (CLEAR); BACTERIA, URINE AUTO NEGATIVE (NEGATIVE); BILIRUBIN, URINE AUTO NEGATIVE (NEGATIVE); BLOOD, URINE BLOOD 1+ (NEGATIVE); COLOR, URINE YELLOW (YELLOW); GLUCOSE, URINE (UA) AUTO NEGATIVE (NEGATIVE); KETONE, URINE AUTO NEGATIVE (NEGATIVE); LEUKOCYTE ESTERASE, URINE AUTO 3+ (NEGATIVE); NITRITE, URINE AUTO NEGATIVE (NEGATIVE); PROTEIN, URINE AUTO 2+ mg/dL (NEGATIVE); RBC, URINE AUTO 60 /HPF (0-3); SPECIFIC GRAVITY URINE AUTO 1.017 (1.002-1.035); SQUAMOUS EPITHELIAL CELL UR AU 0 /HPF (0-6); UROBILINOGEN, URINE AUTO 0.2 mg/dL (0.0-2.0); WBC, URINE AUTO TNTC /HPF (0-3)
== END ==
LOC: M SMT 17:07
PROVIDERS: ATTEND Nurse Practitioner Family
DX: R35.0 Frequency of micturition (principal)

== ENCOUNTER → 2023-09-02 | Outpatient (CLI) | payer MEDICARE, BC, OTHER | LOC: M RAD 10:47 | PROVIDERS: ATTEND Nurse Practitioner Family | DX: N39.0 Urinary tract infection, site not specified (principal); N28.1 Cyst of kidney, acquired ==

== ENCOUNTER → 2023-09-13 | Outpatient (REF) | payer MEDICARE, BC, OTHER ==
[~2023-09-13] MED LIST changes: -MIRA1POW3 PO; +MIRA33506 PO
[2023-09-13 13:40] LABS: DIGOXIN LEVEL < 0.1 NG/ML (0.8-2.0); IRON (FE) 104 UG/DL (50-170); PERCENT SATURATION 34.7 % (13.2-45.0); TOTAL IRON BINDING CAPACITY 300 UG/DL (250-425)
[2023-09-13 13:43] LABS: FERRITIN 241.3 NG/ML (7.3-270.7)
[2023-09-14 08:10] LABS: LDL DIRECT 88 mg/dL (0-99)
== END ==
LOC: M LAB REF 12:07
PROVIDERS: ATTEND Internal Medicine
DX: D50.9 Iron deficiency anemia, unspecified (principal); I48.0 Paroxysmal atrial fibrillation; E78.5 Hyperlipidemia, unspecified

== ENCOUNTER → 2023-10-29 | Outpatient (REF) | payer MEDICARE, BC, OTHER ==
[2023-10-29 13:09] LABS: PERCENT SATURATION 34.7 % (13.2-45.0)
[2023-10-29 13:10] LABS: FERRITIN 58.8 NG/ML (7.3-270.7)
[2023-10-29 13:14] LABS: DIGOXIN LEVEL 1.5 NG/ML (0.8-2.0)
== END ==
LOC: M LAB REF 11:45
PROVIDERS: ATTEND Internal Medicine
DX: D50.9 Iron deficiency anemia, unspecified (principal); I48.0 Paroxysmal atrial fibrillation

== ENCOUNTER → 2024-02-14 | Outpatient (REF) | payer MEDICARE, BC, OTHER ==
[~2024-02-14] MED LIST changes: +ROSU5TAB40 PO; -ROSU5TAB5 PO
[2024-02-14 14:25] LABS: APPEARANCE, URINE CLEAR (CLEAR); BACTERIA, URINE AUTO 1+ (NEGATIVE); BILIRUBIN, URINE AUTO NEGATIVE (NEGATIVE); BLOOD, URINE BLOOD NEGATIVE (NEGATIVE); COLOR, URINE YELLOW (YELLOW); GLUCOSE, URINE (UA) AUTO NEGATIVE (NEGATIVE); KETONE, URINE AUTO NEGATIVE (NEGATIVE); LEUKOCYTE ESTERASE, URINE AUTO TRACE (NEGATIVE); MUCUS, URINE SMALL (NEGATIVE); NITRITE, URINE AUTO NEGATIVE (NEGATIVE); PROTEIN, URINE AUTO NEGATIVE (NEGATIVE); RBC, URINE AUTO 0 /HPF (0-3); SPECIFIC GRAVITY URINE AUTO 1.012 (1.002-1.035); SQUAMOUS EPITHELIAL CELL UR AU 1 /HPF (0-6); UROBILINOGEN, URINE AUTO 0.2 mg/dL (0.0-2.0); WBC, URINE AUTO 6 /HPF (0-3)
== END ==
LOC: M SMT 13:19
PROVIDERS: ATTEND Physician Assistant
DX: R30.0 Dysuria (principal)

== ENCOUNTER → 2024-05-09 | Outpatient (REF) | payer MEDICARE, OTHER ==
[2024-05-09 14:16] LABS: DIGOXIN LEVEL 1.2 NG/ML (0.8-2.0)
[2024-05-09 14:17] LABS: PERCENT SATURATION 24.8 % (13.2-45.0)
[2024-05-09 14:19] LABS: FERRITIN 68.8 NG/ML (7.3-270.7)
== END ==
LOC: M LAB REF 12:53
PROVIDERS: ATTEND Internal Medicine
DX: D50.9 Iron deficiency anemia, unspecified (principal); I11.9 Hypertensive heart disease without heart failure; Z95.0 Presence of cardiac pacemaker; R55 Syncope and collapse

== ENCOUNTER → 2024-08-09 | Outpatient (REF) | payer MEDICARE, OTHER, BC ==
[~2024-08-09] MED LIST changes: -ROSU5TAB40 PO; +ROSU5TAB49 PO
[2024-08-09 17:17] LABS: PERCENT SATURATION 18.2 % (13.2-45.0)
[2024-08-09 17:21] LABS: FERRITIN 46.1 NG/ML (7.3-270.7)
== END ==
LOC: M LAB REF 16:11
PROVIDERS: ATTEND Internal Medicine
DX: D50.9 Iron deficiency anemia, unspecified (principal)

== ENCOUNTER 2024-08-11 17:17 | Emergency (ER) | payer MEDICARE, BC ==
[~2024-08-11] VITALS: Ht 167.6 cm; Wt 85.5 kg
[2024-08-11 18:45] LABS: BASO # 0.1 10^3/uL (0.0-0.2); BASO % 0.8 % (0.0-1.0); EOS # 0.3 10^3/uL (0.0-0.5); EOS % 4.9 % (0.0-3.0); HEMATOCRIT 37.7 % (36.0-47.0); HEMOGLOBIN 11.7 g/dl (12.0-15.5); LYMPH # 1.3 10^3/uL (1.5-5.0); LYMPH % 20.4 % (24.0-44.0); MEAN CORPUSCULAR HEMOGLOBIN 28.6 pg (27.0-33.0); MEAN CORPUSCULAR VOLUME 92.2 fl (80.0-96.0); MONO # 0.8 10^3/uL (0.0-0.8); MONO % 12.5 % (2.0-8.0); NEUTROPHILS # 3.9 10^3/uL (1.5-8.5); NEUTROPHILS % 60.8 % (36.0-66.0); PLATELET COUNT, AUTOMATED 209 10^3/uL (150-450); RED BLOOD COUNT 4.09 10^6/uL (4.00-5.40); WHITE BLOOD COUNT 6.5 10^3/uL (4.0-10.0)
[2024-08-11 18:52] LABS: ALBUMIN 3.9 G/DL (3.2-5.2); ALKALINE PHOSPHATASE 56 U/L (35-104); ALT/SGPT 27 U/L (7.0-40); AST/SGOT 21 U/L (<34); BILIRUBIN,TOTAL 0.5 MG/DL (0.3-1.2); BLOOD UREA NITROGEN 27 MG/DL (9-23); CALCIUM LEVEL 9.6 MG/DL (8.3-10.6); CARBON DIOXIDE LEVEL 25 MMOL/L (20-31); CHLORIDE LEVEL 107 MMOL/L (98-107); CREATININE FOR GFR 0.73 MG/DL (0.55-1.30); GLOMERULAR FILTRATION RATE > 60.0 (>32); GLUCOSE, FASTING 95 MG/DL (74-106); POTASSIUM SERUM 4.7 MMOL/L (3.5-5.1); SODIUM LEVEL 143 MMOL/L (136-145); TOTAL PROTEIN 7.2 G/DL (5.7-8.2)
[2024-08-11 19:20] LABS: RSV AMPLIFICATION NEGATIVE (NEGATIVE)
[2024-08-11 22:30] VITALS: BP 208/86; TEMP 97.4; O2SAT 90
[2024-08-11] MEDS ORDERED: LABETALOL 100MG/20ML VIAL IV STA ×2 (23:06→23:09)
[2024-08-11] MEDS: LABETALOL 100MG/20ML VIAL IV PRN (23:14)
[2024-08-11] MEDS: VALSARTAN 80 MG TAB (DIOVAN) PO ONE (23:18)
[2024-08-11] MEDS: CARVedilol 12.5 MG TAB PO ONE (23:18)
[2024-08-11 23:22] VITALS: BP 186/68
[2024-08-11] MEDS: LABETALOL 100MG/20ML VIAL IV STA (23:22)
== END 2024-08-11 22:46 | disposition short-term general hospital (02) ==
LOC: M ED 17:17
DX: S13.150A Subluxation of C4/C5 cervical vertebrae, initial encounter (principal); M50.323 Other cervical disc degeneration at C6-C7 level; M47.12 Other spondylosis with myelopathy, cervical region; W19.XXXA Unspecified fall, initial encounter; Y92.9 Unspecified place or not applicable; Y93.9 Activity, unspecified; Y99.9 Unspecified external cause status; I48.91 Unspecified atrial fibrillation; R00.0 Tachycardia, unspecified; R00.1 Bradycardia, unspecified; Z86.73 Personal history of transient ischemic attack (TIA), and cerebral infarction without residual deficits; Z79.01 Long term (current) use of anticoagulants; Z79.899 Other long term (current) drug therapy; Z88.8 Allergy status to other drugs, medicaments and biological substances; Z91.018 Allergy to other foods
CPT/HCPCS: 72052; 80047; 80053; 85025; 87631; 99285; J1920

== ENCOUNTER → 2024-08-11 | Outpatient (CLI) | payer MEDICARE, BC | LOC: M RAD 11:08 | PROVIDERS: ATTEND Internal Medicine | DX: M47.812 Spondylosis without myelopathy or radiculopathy, cervical region (principal); M50.321 Other cervical disc degeneration at C4-C5 level ==

== ENCOUNTER → 2024-11-09 | Outpatient (REF) | payer MEDICARE, BC ==
[2024-11-09 14:04] LABS: PERCENT SATURATION 26.1 % (13.2-45.0)
[2024-11-09 14:06] LABS: FERRITIN 42.3 NG/ML (7.3-270.7)
[2024-11-11 09:27] LABS: LDL DIRECT 98 mg/dL (<100)
== END ==
LOC: M LAB REF 12:45
PROVIDERS: ATTEND Internal Medicine
DX: D50.9 Iron deficiency anemia, unspecified (principal); E78.5 Hyperlipidemia, unspecified